=== PATIENT | male | born 1975 | race African-American/Black ===

== ENCOUNTER 2024-07-10 06:19 | Inpatient (IN) | payer OTHER, SELFPAY ==
[2024-07-10] VITALS (56 sets, daily range): BP systolic 126–221; BP diastolic 78–152; PULSE 77–78; O2SAT 95–99; BMI 34.0; BMI 33.7
--- NOTE | 2024-07-10 04:01 | ED.CVA ---
History of Present Illness
General
Chief Complaint: CVA/TIA Symptoms
Source: patient
Exam Limitations: none
Time Seen by Provider: 07/10/24 03:52
Nursing documentation reviewed up to this point in time: agreed with
Onset of Stroke Symptoms
Onset of symptoms known: Yes
Date of onset of symptoms: 07/09/24
Time of onset of symptoms: 20:00
History of Present Illness
History of Present Illness:
49-year-old male with a past medical history of hypertension who presents to the emergency department for evaluation of dysarthria and right-sided weakness. Patient reports onset of symptoms around 8 PM and they have been constant since that time
although he says he feels they have slightly improved. He says that he was hoping they would go away and that it was nothing serious but when symptoms were not resolving a coworker convinced him to come to the hospital. He denies any left-sided
numbness or weakness. He denies any change in his vision. He denies any headache. He denies any dizziness. He denies any other complaints. He has not had similar symptoms in the past. He was noted to be markedly hypertensive on arrival�he
reports that he had does have a history of hypertension and previously was on medication but has been noncompliant for quite some time.
Past History
Past History
ED Past Medical History: None
ED Past Surgical History: None
Social History
Tobacco: Non-smoker
Review of Systems
Review of Systems
All Other Systems: ROS reviewed and negative except as documented in HPI and ROS
Constitutional: Denies fever
Respiratory: Denies trouble breathing
Cardiac: Denies chest pain
ABD/GI: Denies abdominal pain
Musculoskeletal: Denies neck pain or back pain
Neurological: Reports weakness, numbness and other (Dysarthria); Denies dizzy or headache
Phy Exam
Physical Exam
Physical Exam:
General: Awake, alert, oriented x3; no acute distress
Head: Normocephalic, atraumatic
Eyes: Conjunctiva normal, EOMI, pupils equal round and reactive to light bilaterally
Throat: Airway intact, handling secretions
Neck: Trachea midline, supple without meningismus
Lungs: Clear to auscultation bilaterally, no wheezing, rales, rhonchi
Heart: Regular rate and rhythm, no murmurs, gallops, or rubs
Abd: Soft, non distended, nontender
Neuro: Very subtle facial droop on the left, proximal weakness 4+/5 right upper extremity but no pronator drift, 5/5 distal strength right upper extremity; 5/5 strength proximally and distally left upper extremity; 4/5 strength proximally right
lower extremity, 5/5 strength distal right lower extremity; 5/5 strength proximally and distally left lower extremity; sensory exam intact; no limb ataxia; very slight dysarthria but no aphasia
Skin: no rash
Extremities: No edema in extremities, equal pulses in all extremities
Scores
NIH Stroke Score
Level of Consciousness: 0 - Alert
LOC Questions: 0-Answers both correctly
LOC Commands: 0-Performs both correctly
Best Horizontal Gaze: 0-Normal
Visual [place]: 0=Normal, no visual loss
Facial Palsy: 1=Minor paralysis
Motor - Right Arm: 0=No drift 10 seconds
Motor - Left Arm: 0=No drift 10 seconds
Motor - Right Le-Drift < 5 seconds
Motor - Left Le-No drift 5 seconds
Limb Ataxia: 0-Absent
Sensation: 0-Normal
Best Language: 0-No aphasia
Dysarthria: 1-Mild slurring
Extinction and Inattention: 0-No abnormality
Total Score:: 3
Thrombolytic Contraindication
Inclusion and Exclusion criteria reviewed: Yes
Reasons for NON-Tx with Thrombolytics ABSOLUTE Exclusions: Greater than 4.5 hrs from onset of sxs
Heart Failure Risk
Heart Failure Risk Score: Not Applicable
Heart Score for Chest Pain Patients
STEMI patient?: Not applicable
Withdrawal Assessment of Alcohol
Withdrawal Assessment Completed?: Not applicable
Course
Orders/Labs/Results
Orders:
Orders
07/10/24 03:58
CT HEAD STROKE ALERT W/o Cont Urgent
Comment:
Reason For Exam: right weakness, dysarthria
CT HEAD/NECK ANG STROKE ALERT Urgent
Comment:
Reason For Exam: right weakness, dysarthria
Bedside Glucose- Treatment ONCE
Cardiac Monitoring- Treatment ONCE
IV Insert/Care/Rem.- Treatment PRN
Vital Signs- Treatment ONCE
Frequency: q30m
Labetalol HCl [Trandate] 10 mg IV NOW STA
Pulse Ox/cont/shift [RESP] Stat
Quantity: 1
07/10/24 03:59
Electrocardiogram (*1) Stat
Reason for Study: Other
Other Reason for Exam: neuro symptoms
EKG- Treatment ONCE
07/10/24 04:29
Complete Blood Count/With Diff Urgent
Comprehensive Metabolic Panel Urgent
07/10/24 04:33
Clonidine [Catapres] 0.2 mg PO NOW STA
07/10/24 04:36
Aspirin 325 mg PO NOW STA
Clopidogrel Bisulfate [Plavix] 300 mg PO NOW STA
07/10/24 04:39
NEUROLOGY CONSULT Urgent
Consulting Provider: Sandeep Bravo
Was physician already notified: Yes
Abnormal Lab Results
07/10/24 07/10/24
04:27 04:29
MCV 79.5 L fL
(80.0-94.0)
MCH 26.0 L pg
(27.0-31.0)
MCHC 32.8 L g/dL
(33.0-37.0)
MPV 11.8 H fL
(7.4-10.4)
Eosinophils % 10.3 H %
(0-6)
POC Glucose 110 H mg/dl
(70-99)
07/10/24 04:29
Vital Signs
Initial and Last Documented VS:
Initial Vital Signs
BP
221/150
07/10/24 03:50
Last Documented Vital Signs
Pulse Resp BP Pulse Ox
95 26 215/152 99
07/10/24 04:22 07/10/24 03:55 07/10/24 04:40 07/10/24 03:55
MDM/Problems Addressed
Differential Diagnosis Includes:
Hemorrhagic/ischemic stroke, malignant hypertension/hypertensive crisis, seizure, brain mass
MDM/Problems Addressed:
49-year-old male presents to the ER for evaluation of right sided weakness and numbness, dysarthria that started around 8 PM�he feels symptoms have slightly improved but have not resolved. Presents was markedly hypertensive with a blood pressure of
221/150. Pulse in the 90s. Mild tachypnea. Afebrile with normal pulse ox on room air. Physical exam as above�NIH stroke scale 3. Stroke alert was called after initial assessment. Case discussed with neurology�unfortunately patient would be
outside TNK window and even within the window would need aggressive blood pressure control. Will treat with IV labetalol. Sent for CT head and CTA head and neck. Send off usual labs, EKG. Monitor very closely reassess after the above.
Initial CT called back by vision radiology: Question hyperdense M2 on the right versus artifact but no clear acute infarct or hemorrhage�will follow-up on CTA. Continue to monitor. Antihypertensive treatment in progress.
CTA head and neck negative for any acute pathology�no LVO. Discussed with neurology will dose with aspirin and Plavix. Blood pressure has improved with labetalol, systolic blood pressure down to 180 but still significant diastolic hypertension.
Given some p.o. clonidine. Discussed blood pressure management with hospitalist and neurology�will plan to treat for suspected hypertensive crisis aim for initial 20% reduction in blood pressure and started on Cardene infusion. Discussed with
hospitalist for admission.
Chronic conditions affecting care:
Hypertension
Chronic conditions affecting care: HTN
Acute Exacerbation and/or Progression of Chronic Illness:
Acutely hypertensive treated as above
Acute Exacerbation and/or Progression of Chronic Illness: HTN
*Radiology
Radiology exam reviewed: radiology read reviewed
*Pulse Oximetry
Patient hypoxic: no
*EKG
Interpreted by ED Provider?: Yes
Heart Rate: 84
Rate: normal
Rhythm: sinus
[place]: left axis deviation
Interval: normal interval
QRS Pattern: left vent hypertrophy
Ischemia: T-wave inversion (Lateral T wave inversions)
*Critical Care Note
Total Time (30-74mins, 75-104mins- exclusive of procedures): 36
comment:
Critical care statement: A total of 36 minutes of critical care time was provided for this patient. This includes management of unstable vital signs, evaluation of the patient at bedside, frequent reassessment, discussion with
consultants/hospitalist, and review of pertinent medical records. This time was separate from time utilized to perform any aforementioned documented procedures
Data Reviewed
Source: patient
Patient Management
Discussion with other providers: Hospitalist (Discussed with hospitalist), Director Cost (Discussed with neurologist) and Radiologist (Discussed with radiologist)
Escalation/DeEscalation of care consider admission/obs:
Admission indicated
ED Attending Note
-
Portions of this chart may have been created with voice recognition software.� Occasional wrong word or��sound alike� substitutions may have occurred due to the inherent limitations of voice recognition software.
Discharge Plan
Departure
Patient Disposition: Admit
Date of Disposition: 07/10/24
Time of Disposition: 04:55
Admit to doctor: Wade
Presentation/result/management discussed w/ accepting MD/DO: Hospitalist
Patient with high blood pressure during this ER visit?: Yes
Discharge Problem:
Hypertensive emergency, Acute CVA (cerebrovascular accident)
Interventions
Interventions:
*Risk Screen - Suicide Last Done: 07/10/24 03:38
*General Assessment Last Done: 07/10/24 03:38
*Neglect/Abuse Screening Last Done: 07/10/24 03:38
ED- Fall Risk Assessment Last Done: 07/10/24 03:38
*ED COVID-19 Vaccine History Last Done: 07/10/24 03:38
ED- Cardiac Assessment Last Done: 07/10/24 03:38
ED- Neurological Assessment Last Done: 07/10/24 03:38
ED- Pulmonary Assessment Last Done: 07/10/24 03:38
ED Swallowing Screen Last Done: 07/10/24 03:57
Discharge Date and Time
Print Language: TAIWANESE
[2024-07-10] MEDS: TRANDATE 10 MG IV (04:22)
[2024-07-10 04:28] LABS: Glucose - Point of Care 110 mg/dl (70-99)
[2024-07-10] MEDS: ASPIRIN 325 MG PO (04:40)
[2024-07-10] MEDS: PLAVIX 300 MG PO (04:40)
[2024-07-10] MEDS: CATAPRES 0.2 MG PO (04:40)
[2024-07-10 04:45] LABS: % Eosinophils 10.3 % (0-6); % Immature Granulocytes 0.3 % (0-0.5); % Lymphocytes 29.5 % (20.5-51.1); % Monocytes 7.7 % (1.7-9.3); % Neutrophils 51.2 % (42.2-75.2); Absolute Basophils 0.1 10^3/uL (0-0.2); Absolute Eosinophils 0.6 10^3/uL (0-0.7); Absolute Lymphocytes 1.8 10^3/uL (1.2-3.4); Absolute Monocytes 0.5 10^3/uL (0.1-0.6); Absolute Neutrophils 3.1 10^3/uL (1.4-6.5); Hematocrit 40.3 % (39.0-52.0); Hemoglobin 13.2 g/dL (13.0-18.0); Mean Corp Hgb Conc. 32.8 g/dL (33.0-37.0); Mean Corpuscular Volume 79.5 fL (80.0-94.0); Mean Platelet Volume 11.8 fL (7.4-10.4); Nucleated Red Blood Cells % 0 % (-); Platelet Count 209 10^3/uL (130-400); Red Blood Cell Count 5.07 10^6/uL (4.70-6.10); Red Cell Dist. Width 13.8 % (11.5-14.5)
[2024-07-10] MEDS: CARDENE 200 IV (05:09)
[2024-07-10 05:10] LABS: ALT (SGPT) 30 U/L (0-50); AST (SGOT) 42 U/L (17-59); Albumin 4.7 g/dl (3.5-5.0); Alkaline Phosphatase 54 U/L (38-126); Blood Urea Nitrogen 15 mg/dl (9-20); Calcium 9.3 mg/dl (8.4-10.2); Carbon Dioxide 31 mmol/L (22-30); Chloride 100 mmol/L (98-107); Estimated Creatinine Clearance 81 ml/min; Glucose 103 mg/dl (70-99); Potassium 3.5 mmol/L (3.5-5.1); Sodium 142 mmol/L (135-145); Total Bilirubin 0.5 mg/dl (0.2-1.3); eGFR > 60.00
--- NOTE | 2024-07-10 06:10 | HPS.HSE ---
Family Physician
-
Family Physician: NOT KNOW UNKNOWN - PT DOES
Chief Complaint
-
R sided weakness
History of Present Illness
Patient is a 49y left-hand dominant M with PMH significant for hypertension not currently on medication who presents to ED complaining of right-sided weakness. Patient states that he was at work when he appreciated a sense of heaviness /
weakness in his entire right side. This was around 8PM. His symptoms persisted for quite some time with perhaps only minimal improvement and her presented to the ED for further evaluation. He denies any prior history of similar symptoms. He
denies any recent illness, fevers / chills, chest pain, dyspnea, etc.
At the time of my examination, patient states that his symptoms feel fully resolved. He denies any headache, vision changes, N/V, etc.
Patient reports prior diagnosis of hypertension. He was previously on BP medication (one pill daily - he cannot recall the name) but states that he has not taken this in at least 2 years.
Medical History
Past Medical History
Past Medical History: Reports Other
Additional Past Medical History:
Hypertension
Past Surgical History: Reports None
Social History
Tobacco: Non-smoker
Alcohol: None
Drug: None
Family History
Family History: Not pertinent
Allergies / Home Medications
Allergies reflects when Allergies were last updated in [facility].
Home Medications with original date entered in [facility]
Allergy/Medication List:
Allergies
Allergy/AdvReac Type Severity Reaction Status Date / Time
No Known Allergies Allergy Verified 07/10/24 03:33
Home Medications
No Meds [No Current Medications] 07/10/24
Review of Systems
-
History Source: Patient
A 12 point ROS was completed and negative except as noted: Yes
Constitutional: Reports Fatigue; Denies Fever or Chills
EENT: Denies Sore Throat
Respiratory: Denies Cough or Trouble Breathing
Cardiac: Denies Chest Pain or Palpitations
Abdomen/GI: Denies Abdominal Pain, Nausea, Vomiting or Diarrhea
: Denies Dysuria or Frequency
Musculoskeletal: Denies Joint Pain or Edema
Neurological: Reports Weakness; Denies Dizzy, Headache or Numbness
Psych: Denies Depression or Anxiety
Physical Exam
Vital Signs
Vital Signs
Pulse Resp BP Pulse Ox
96 20 151/87 98
07/10/24 06:00 07/10/24 06:00 07/10/24 06:00 07/10/24 05:50
Physical Exam
General: Other (49y M in no acute distress. Seems somewhat fatigued / lethargic - but answers questions and follows commands appropriately.)
HEENT: Moist mucous membranes and PERRLA
Respiratory: Clear; No Wheezes, Rales or Rhonchi
Cardiac: S1/S2 and Regular Rhythm; No Murmur
GI: Soft, Non Tender, Non Distended and Normal Bowel Sounds
Musculoskeletal: No Clubbing, No Cyanosis and No Edema
Neuro: AO x 3 and Other (Smile symmetric. Tongue extends to midline. Weakness in RUE and RLE. No apparent ataxia. Sensation intact and symmetric.)
Laboratory Results
-
07/10/24 04:29
07/10/24 04:29
Laboratory Results
Total Bilirubin 0.5 mg/dl (0.2-1.3) 07/10/24 04:29
AST 42 U/L (17-59) 07/10/24 04:29
ALT 30 U/L (0-50) 07/10/24 04:29
Alkaline Phosphatase 54 U/L (38-126) 07/10/24 04:29
Impression/Plan
-
A/P: Patient is a 49y left-hand dominant male with PMH significant for hypertension who presents to ED complaining of R sided weakness this evening.
Hypertensive Emergency
Right Sided Weakness
Rule Out CVA
- Admit to ICU for further evaluation and treatment.
- Patient presented with R sided weakness and some somnolence fatigue.
- Initial BP = 221/150.
- Patient states that symptoms improved - though still appreciable R sided weakness evident on exam.
- IV Cardene for BP control and titrate as needed.
- ASA and Plavix.
- Neurology evaluation for additional recommendations.
- CT and CTA unremarkable in the ED. Check MRI this AM.
- Follow for any new / worsening neurologic symptoms.
- Check lipid panel, A1C, iron studies, etc.
- Begin PO antihypertensive med regimen prior to discharge.
DVT Prophylaxis: SCDs
Code Status: Full
--- NOTE | 2024-07-10 06:44 | EDRN ---
Addendum entered by Mona Nuñez RN 07/10/24 07:56:
to add to previous note, upon entering the room and assessing the pt, the pt mentioned how his left forearm felt 'swollen', this RN assesses the pts left forearm and the pts forearm has +2 non pitting edema present, this RN noticed a piece of gauze
with tape on the LAC site, this RN asked the pt when he noticed the swelling and the pt stated, 'Not too long ago', this RN will notify the provider
Original Note:
the pt was received from previous leather carver RN, the pt is resting in stretcher in the lowest position, side rails up x2, call looney within reach, HOB elevated, no s/s of distress, VS WNL, the pt is currently still on Cardene gtt at 5mg/hour, NIH
performed by this RN and no change from previous NIH performed by previous RN, NIH is a 3, the pt denies complaints at this time, awaiting for a bed assignment in ICU, will continue to monitor the pt closely
--- NOTE | 2024-07-10 08:04 | EDRN ---
this RN called the receiving ICU nurse Cody CAPPS and gave verbal report
--- NOTE | 2024-07-10 08:33 | EDRN ---
there was no answer regarding the pts swollen left forearm, this RN will notify the provider again
--- NOTE | 2024-07-10 08:33 | W.PN.HOSP.TC ---
Today's Communication/Plan
-
High intensity statin, Aspirin and Plavix
Wean off Cardene Drip as able
Continue to monitor in ICU
Appreciate veterinary attendant, neurology and cardiology
Assessment / Plan
Assessment / Plan
Physical Exam
General: Not in acute distress
HEENT: Moist mucous membranes
Respiratory: Clear to Auscultation Bilaterally
Cardiac: S1/S2 and Regular Rhythm
GI: Soft, Non Tender, Non Distended and Normal Bowel Sounds
Musculoskeletal: No Cyanosis and No Edema
Neuro: AAO x 3. Cranial Nerves 2 through 12 grossly intact bilaterally. Strength 5/5 bilaterally. Sensation grossly intact throughout.
Assessment/Plan
Patient is a 49y left-hand dominant male with PMH significant for hypertension who presented to complaining of right-sided weakness on the evening of 07/10/24.
Hypertensive Emergency
Right Sided Weakness -- RESOLVED
Rule Out CVA
Multiple Strokes (both old and new) on Brain MRI, as per neurologist
- Continue to monitor in ICU
- Initial BP = 221/150.
- Patient states that symptoms improved
- IV Cardene for BP control and titrate as needed.
- Continue Aspirin and Plavix.
- Neurology evaluation for additional recommendations.
- CT and CTA unremarkable in the ED.
- MRI Brain with multiple strokes
- Follow for any new / worsening neurologic symptoms.
- LDL 160, A1C 5.4, iron studies pending
- High-intensity statin
- Amlodipine 5 mg PO BID started
- Consulted cardiology for SALVADOR evaluation
Snoring
- outpatient pulm/HST recommended
DVT Prophylaxis: SCDs. Lovenox.
Code Status: Full
Hypertensive emergency and strokes is a high risk encounter.
Anticipated Discharge: > 48 hours
Subjective/Interval History
-
Date of Service: July 10, 2024
Patient was seen and examined. He reported that his right sided weakness has resolved, and he denied any numbness, tingling, chest pain, SOB or any other symptoms or complaints.
Objective Data
-
Labs:
Laboratory Results
07/10/24
04:29
WBC 6.0
Hgb 13.2
Hct 40.3
Plt Count 209
Sodium 142
Potassium 3.5
Chloride 100
Carbon Dioxide 31 H
BUN 15
Creatinine 1.3
Glucose 103 H
Calcium 9.3
Total Bilirubin 0.5
AST 42
ALT 30
Alkaline Phosphatase 54
Vital Signs:
Vital Signs
Temp Pulse Resp BP Pulse Ox
98.5 F 96 13 149/94 97
07/10/24 06:42 07/10/24 07:52 07/10/24 07:52 07/10/24 07:52 07/10/24 07:52
--- NOTE | 2024-07-10 08:51 | EDRN ---
Dr Glover is aware of the pts LFA swelling
--- NOTE | 2024-07-10 09:05 | CON.INTV ---
Consultation
Consultation Request
Date/Time Consultation Requested: 07/10/24
Date/Time Consultation Performed: 07/10/24
Performing Provider: Janny
Reason for Consultation: HTN emergency
Medical History
-
History of Present Illness:
Patient is a 49-year-old male with previous history of hypertension not currently on medication presenting to ER with complaints of right-sided weakness. Onset of symptoms began the night prior to admission around 8 PM. Denies any associated
vision changes, nausea or vomiting. He does have slight headache. In ER he was noted to be 221/150 and placed on Cardene drip. His blood pressure has been this high in the past per patient. He was supposed to be on blood pressure medication but
has not been taking it for the past [address] negative. He is admitted to ICU for hypertensive emergency.
Past Medical History
Past Medical History: HTN
Social History
Tobacco: Non-smoker
Alcohol: None
Drug: None
Family History
Family History: Reviewed & Not Pertinent
Allergies / Home Medications
Allergies
Allergy/AdvReac Type Severity Reaction Status Date / Time
No Known Allergies Allergy Verified 07/10/24 03:33
Home Medications
�Medication �Instructions �Recorded �Confirmed �Last Taken �Type
No Meds [No Current Medications] 07/10/24 07/10/24 Unknown History
Review of Systems
-
History Source: Patient
All other systems: Negative unless noted
Vitals / Labs / Diagnostic Testing
Vital Signs
Temp Pulse Resp BP Pulse Ox
98.5 F 79 16 147/94 96
07/10/24 06:42 07/10/24 08:45 07/10/24 08:45 07/10/24 08:30 07/10/24 08:45
Lab Data
07/10/24 04:29
07/10/24 04:29
Diagnostic Testing:
Physical Exam
-
HEENT: Normocephalic, Anicteric and Moist Mucous Membranes
Cardiovascular: S1/S2 and Regular Rhythm
Respiratory: Clear and Non-Labored Respirations
GI: Soft, Non Distended and Non Tender
Neurology: Awake, Alert, Oriented and No Motor Deficits
Skin: Warm, Dry and Good Color
General: Comfortable and Other (NAD)
Assessment
-
Patient is a 49-year-old male with previous history of hypertension not currently on medication presenting to ER with complaints of right-sided weakness. Onset of symptoms began the night prior to admission around 8 PM. Denies any associated
vision changes, nausea or vomiting. He does have slight headache. In ER he was noted to be 221/150 and placed on Cardene drip. His blood pressure has been this high in the past per patient. He was supposed to be on blood pressure medication but
has not been taking it for the past [address] negative. He is admitted to ICU for hypertensive emergency.
Hypertensive emergency on Cardene
R sided weakness
Headache
Conditions present WATCH GUARD GATE
HTN, noncompliant
Obesity, BMI 34
+snoring, likely with OSAS
Plan
No current signs of metabolic encephalopathy or MS changes/following commands
R sided weakness, SHORT--Head CT negative
Neuro consult obtained, now ruled in for CVA but placed on ASA/Plavix
Pain/sedation: PRN
RASS goals: 0
Hemodynamically stable, not requiring pressors.
Cardiac history reviewed -- poorly controlled HTN, noncomplaint
Now on cardene, improved, transition to PO BP Meds
No prior ECHO in past, new study pending
Monitor on telemetry
Oxygen needs: stable on RA
Prior history of lung disease: none, lifelong nonsmoker
Supplemental O2 as indicated to maintain sats > 89%
CXR/CT in past reviewed indicating NAD
+Snoring, outpt HST recommended--will place FU in chart
Speech therapy eval
NPO, advance diet pending speech eval
Manager Rental recommendations
Aspiration precautions, HOB > 30 degrees
GI prophylaxis if indicated
Creat at baseline, no history of renal disease
Void trials
Follow urine output, critical I/Os
Replete electrolytes as needed
No signs/symptoms suspicious for infectious etiology at this time
Observe off antibiotics for now
Follow fever trend, WBC count
CBC stable, no signs of bleeding or coagulopathy.
DVT prophylaxis as assessed based on risk, including mechanical SCDs
Can transfuse if indicated for Hb <7, plt < 10
No prior h/o diabetes or thyroid disease
Monitor accuchecks PRN/SS coverage if needed
HbA1c pending
If doing well-off cardene can transfer to floors. We will sign off upon transfer.
Diagnostic Data
Chest X-Ray: 05/07/23- No evidence of active cardiopulmonary disease. There is no radiographic evidence to suggest active tuberculosis
CT Scan: HEAD-pending final read
Head 11/22/20- No acute intracranial abnormality noted. Minimal periventricular small vessel ischemic disease.
Echo:
PFT's:
Reports and relevant images were personally reviewed.
-----
Critical care time 55 mins -- this includes review of history, physical exam, medications, hemodynamic/ventilator parameters, laboratory data, imaging and discussion with house staff, pharmacy, respiratory therapy, turret lathe tender, and nursing.
--- NOTE | 2024-07-10 09:13 | CON.NEURO ---
Neuro Assessment/Plan
Assessment
Acute onset right arm and leg numbness associated by report with dysarthria. Patient had malignant hypertension at the time of presentation.
Differential diagnosis at this time would include hypertensive encephalopathy, or stroke
Plan
Check MRI of brain to evaluate for possible structural abnormality producing the hypertensive crisis
Check lipid profile
Agree with initiation of aspirin and clopidogrel both of which may be discontinued if there are not findings by MRI that suggest prior ischemic injury
Goal of blood pressure improvement with the goal of normotension if there is an absence of acute ischemic stroke
Provide medical educational materials
DVT prophylaxis
Will follow pending results
Consultation
Order
Date of Consultation: 07/10/24
Requesting Provider: Hospitalists
Reason for Consult: Right hemibody sensation change
Subjective/Objective
Subjective Data
Date of Service: July 10, 2024
Left handed
Patient presented to this hospital's emergency department as a stroke alert due to sudden onset of dysarthria and right-sided weakness.
Patient reported numbness in arm and leg equally. He reports improvement since presentation, normalized after 1 hour after ED presentation. No prior episodes. Patient is not aware of factors improving or worsening of the symptoms. No involvement
of other locations.
Objective Data
Vital Signs
Temp Pulse Resp BP Pulse Ox
36.9 C 79 16 147/94 96
07/10/24 06:42 07/10/24 08:45 07/10/24 08:45 07/10/24 08:30 07/10/24 08:45
Lab Results
07/10/24 04:29
07/10/24 04:29
Sodium 142 mmol/L (135-145) 07/10/24 04:29
Potassium 3.5 mmol/L (3.5-5.1) 07/10/24 04:29
BUN 15 mg/dl (9-20) 07/10/24 04:29
Glucose 103 mg/dl (70-99) H 07/10/24 04:29
Calcium 9.3 mg/dl (8.4-10.2) 07/10/24 04:29
Patient Allergies
No Known Allergies Allergy (Verified 07/10/24 03:33)
CVA Assessment
Onset of Stroke Symptoms
Onset of symptoms known: Yes
Date of onset of symptoms: 07/09/24
Time of onset of symptoms: 20:00
Time pt last seen normal is known: Yes
Date last time pt seen normal: 07/09/24
Time last time pt seen normal: 20:00
NIH Stroke Score
Level of Consciousness: 0 - Alert
LOC Questions: 0-Answers both correctly
LOC Commands: 0-Performs both correctly
Best Horizontal Gaze: 0-Normal
Visual Merino: 0=Normal, no visual loss
Facial Palsy: 0=Normal, symmetrical
Motor - Right Arm: 0=No drift 10 seconds
Motor - Left Arm: 0=No drift 10 seconds
Motor - Right Le-No drift 5 seconds
Motor - Left Le-No drift 5 seconds
Limb Ataxia: 0-Absent
Sensation: 0-Normal
Best Language: 0-No aphasia
Dysarthria: 0-Normal
Extinction and Inattention: 0-No abnormality
Total Score:: 0
Tenecteplase Contraindications
Inclusion and Exclusion criteria reviewed: Yes
IAT Contraindications: NIHSS < 6
Review of Systems
-
History Source: Patient
All other systems: Reviewed and negative
EENT: Negative Decreased Vision or Swallowing Difficulty
Respiratory: Negative Trouble Breathing
Cardiac: Negative Chest Pain
Abdomen/GI: Negative Incontinence of Stool
Genitourinary: Negative Incontinence
Musculoskeletal: Other (swelling in left arm); Negative Back Pain or Neck Pain
Neuro: Headache; Negative Dizzy
Physical Exam
-
General: No Apparent Distress and Appears Stated Age
Eyes: OU Absent Papilledema, Round OU, [place] Conjunctivae and No Ptosis
HEENT: Anicteric and Moist Mucous Membranes
Neck: Full Range of Motion
Respiratory: No Dyspnea
Cardiac: No JVD
GI: Non-distended
Skin: Unremarkable
Extremities: No Clubbing, No Cyanosis and No Edema
Psych: Intact Judgement/Insight
Extended Neurological Exam
Mood & Affect: Mood Unremarkable and Affect Unremarkable
Attention Span & Concentration: Awake, Alert, Interactive and No Difficulty with 2 Step Request
Memory: Unremarkable
Tremor: Hand Tremor Absent and Head Tremor Absent
Speech: Quality Unremarkable and Quantity Unremarkable
Cranial Nerve II: Left Eye: Pupillary Reactivity Unremarkable, Pupillary Size Unremarkable and Visual Merino Intact
Cranial Nerve II: Right Eye: Pupillary Reactivity Unremarkable, Pupillary Size Unremarkable and Visual Merino Intact
Cranial Nerves III, IV, : Extraocular Movement: Extraocular Movement Full in all Directions
Cranial Nerve VII: Facial Symmetry: Normal Facial Symmetry
Cranial Nerve VIII: Hearing: Unremarkable Hearing to Normal Conversational Volume
Cranial Nerves IX, X: Palate Movement: Palate Elevation Symmetric
Cranial Nerve XI: Shoulder Shrug: Unremarkable
Cranial Nerve XII: Tongue Protusion: Midline
Muscle Strength, Overall: Full Throughout
Muscle Bulk & Tone: Bulk Unremarkable and Tone Unremarkable
Pronator Drift: No Drift in Upper Extremities
Deep Tendon Reflexes: Unremarkable Throughout
Touch Sensation: Unremarkable
Coordination: [id number]-[id number] Testing Unremarkable
Babinski Sign: Absent Bilaterally
Data Reviewed
-
CT Head: Report Reviewed and Image Reviewed
Labs: Report Reviewed
Lipid Profile: Ordered
Reviewed with: Nurse and Patient
Old Records: Summarized
Medications
-
Active Medications
Generic Name Dose Route Start Last Admin
Trade Name Freq PRN Reason Stop Dose Admin
Acetaminophen 650 mg 07/10/24 09:09
Acetaminophen 325 Mg Tablet PO 08/07/24 09:08
Q4HPRN PRN
Mild Pain / Temp > 101
Amlodipine Besylate 5 mg 07/10/24 09:09
Amlodipine 5 Mg Tablet PO 08/07/24 09:08
BID THIAGO
Aspirin 81 mg 07/10/24 09:09
Aspirin 81 Mg Chewable Tablet PO 08/07/24 09:08
DAILY THIAGO
Clopidogrel Bisulfate 75 mg 07/10/24 09:09
Clopidogrel 75 Mg Tablet PO 08/07/24 09:08
DAILY THIAGO
Nicardipine/Sodium Chloride 40 mg in 200 mls @ 0 mls/hr 07/10/24 09:09
Cardene IV
PER PROTOCOL THIAGO
Protocol
Per Protocol
Home Medications
�Medication �Instructions �Recorded
No Meds [No Current Medications] 07/10/24
Past History
Past History
ED Past Medical History: HTN
ED Past Surgical History: None
Social History
Tobacco: Non-smoker
Alcohol: None
Drug: None
Employment: Employed
Family History
Family History: Other (Reviewed and noncontributory)
[2024-07-10] MEDS: LOW STRENGTH ASPIRIN PO (09:20)
[2024-07-10] MEDS: PLAVIX PO (09:20)
[2024-07-10 09:36] LABS: Erythrocyte Sed Rate 10 mm/hour (0-20)
[2024-07-10] MEDS: NORVASC 5 MG PO ×2 (10:32→20:13)
[2024-07-10] MEDS: COMPAZINE 10 MG PO (10:32)
[2024-07-10 12:08] LABS: HDL Cholesterol 44 mg/dl; LDL Cholesterol, Calculated 160 mg/dl; Total Cholesterol 221 mg/dl (50-199); Triglyceride 87 mg/dl (10-149); Very Low Density Lipoprotein 17 mg/dl (0-30)
[2024-07-10 12:35] LABS: Glycohemoglobin (HgbA1c) 5.4 % (4.0-5.6)
--- NOTE | 2024-07-10 12:55 | PTOTSP ---
Speech Language Pathology
Pt seen for clinical bedside swallow evaluation. P.O. trials of regular solids and thin liquids provided. Adequate mastication, bolus formation, and A-P transit noted with no oral residue. No overt signs of aspiration.
Recommend:
(1) Regular solids/thin liquids
(2) General aspiration precautions
(3) Meds as tolerated
(4) Further dysphagia tx not indicated. Cognitive-linguistic evaluation to be completed if MRI positive for acute infarct. Otherwise, LIVE IN HOUSEKEEPER to sign off
--- NOTE | 2024-07-10 13:08 | CM ---
CM follwoing re: discharge planning.
Reviewed pt's chart, met with pt.
Pt is a 49 year old male, admitted with primary dx of HTN emergency.
Pt reports he was born and grew up in [place], immigrated to [facility] with family and resided in a [facility] with spouse and 2 children. 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
PCP: pt stated he does not have PCP. A list of PCP in [facility] area provided.
Pharmacy: [facility].
D/C plan: home with anticipated no needs.
CM will follow with discharge plan updates as hospitalization progresses
--- NOTE | 2024-07-10 14:51 | PTOTSP ---
pt currently demonstrates ability to complete simple ADLs, functional transfers, ambulation with supervision to no assistance. no overt deficits noted regarding pt's functional abilities or cognition. no acute OT needs identified at this time, will
sign off.
--- NOTE | 2024-07-10 16:00 | PTCARENOTE ---
Pt continues to have resolved stroke symptoms. NIH - 0. BP stable off of Cardene infusion. Pt is alert and communicative but seems withdrawn and drowsy.
[2024-07-10 16:42] LABS: TSH Reflex To Free T4 3.21 uIU/ml (0.47-4.68)
[2024-07-10 16:47] LABS: Ferritin 35.9 ng/ml (17.9-464.0)
[2024-07-10 17:18] LABS: Folate 8.8 ng/ml (2.76-20); Vitamin B12 549 pg/ml (239-931)
[2024-07-10] MEDS: LOVENOX 40 MG SC (18:35)
[2024-07-10] MEDS: LIPITOR 80 MG PO (18:35)
--- NOTE | 2024-07-10 20:00 | PTCARENOTE ---
Resumed care of pt this evening. NIHSS-0. No neurological deficits noted in assessment. Pt able to move all 4 extremities, is A&Ox 3, and can make needs known.
[2024-07-11] VITALS (54 sets, daily range): BP systolic 126–203; BP diastolic 92–134
--- NOTE | 2024-07-11 | PTCARENOTE ---
Upon reassessment pt is resting comfortably. Neuro assessment unchanged.
[2024-07-11 06:55] LABS: Hematocrit 42.6 % (39.0-52.0); Mean Corp Hgb Conc. 32.9 g/dL (33.0-37.0); Mean Corpuscular Hgb 26.1 pg (27.0-31.0); Mean Corpuscular Volume 79.5 fL (80.0-94.0); Mean Platelet Volume 11.1 fL (7.4-10.4); Platelet Count 233 10^3/uL (130-400); Red Blood Cell Count 5.36 10^6/uL (4.70-6.10); Red Cell Dist. Width 13.9 % (11.5-14.5); White Blood Cell Count 6.1 10^3/uL (4.8-10.8)
--- NOTE | 2024-07-11 07:00 | PTCARENOTE ---
Pt's pressure is elevated this morning, SBP in the 170s. Dayshift RN made aware.
[2024-07-11 07:13] LABS: Blood Urea Nitrogen 15 mg/dl (9-20); Calcium 9.4 mg/dl (8.4-10.2); Carbon Dioxide 30 mmol/L (22-30); Chloride 102 mmol/L (98-107); Estimated Creatinine Clearance 75 ml/min; Glucose 96 mg/dl (70-99); HDL Cholesterol 38 mg/dl; Iron 141 ug/dl (49-181); LDL Cholesterol, Calculated 168 mg/dl; Potassium 3.3 mmol/L (3.5-5.1); Sodium 142 mmol/L (135-145); Total Cholesterol 223 mg/dl (50-199); Triglyceride 88 mg/dl (10-149); Very Low Density Lipoprotein 17 mg/dl (0-30); eGFR > 60.00
[2024-07-11] MEDS: NORVASC 5 MG PO ×2 (07:21→19:47)
[2024-07-11] MEDS: LOW STRENGTH ASPIRIN 81 MG PO (07:21)
[2024-07-11] MEDS: PLAVIX 75 MG PO (07:21)
[2024-07-11 07:22] LABS: Percent Saturation 44 % (20-50); Total Iron Binding Capacity 316 ug/dl (261-462)
--- NOTE | 2024-07-11 07:25 | W.PN.INTV ---
Today's Communication / Plan
Recommendations
MRI reviewed with patient, neuro following
HTN management ongoing, will add IV PRN to wean off cardene gtt
Cards eval pending for ongoing HTN management as well
PT/OT, speech evals
Transfer to floors if can remain off cardene
Assessment
-
Patient is a 49-year-old male with previous history of hypertension not currently on medication presenting to ER with complaints of right-sided weakness. Onset of symptoms began the night prior to admission around 8 PM. Denies any associated
vision changes, nausea or vomiting. He does have slight headache. In ER he was noted to be 221/150 and placed on Cardene drip. His blood pressure has been this high in the past per patient. He was supposed to be on blood pressure medication but
has not been taking it for the past [address] negative. He is admitted to ICU for hypertensive emergency.
Hypertensive emergency on Cardene
R sided weakness
Headache
MRI + multiple acute/chronic CVAs
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
HTN, noncompliant
Obesity, BMI 34
+snoring, likely with OSAS
Plan
No current signs of metabolic encephalopathy or MS changes/following commands
R sided weakness, SHORT--initial HCT negative
Neuro consult obtained
MRI showing multiple acute/chronic CVAs, on ASA/Plavix
Pain/sedation: PRN
RASS goals: 0
Hemodynamically stable, not requiring pressors.
Cardiac history reviewed -- poorly controlled HTN, noncompliant
Now on cardene, improved, transition to PO BP Meds--add PRN IV hydralazine
Cards eval pending
No prior ECHO in past, new study pending
Monitor on telemetry
Oxygen needs: stable on RA
Prior history of lung disease: none, lifelong nonsmoker
Supplemental O2 as indicated to maintain sats > 89%
CXR/CT in past reviewed indicating NAD
+Snoring, outpt HST recommended--will place FU in chart
Speech therapy eval
Diet advancement
Manager Intensive Care Unit recommendations
Aspiration precautions, HOB > 30 degrees
GI prophylaxis if indicated
Creat at baseline, no history of renal disease
Void trials
Follow urine output, critical I/Os
Replete electrolytes as needed
No signs/symptoms suspicious for infectious etiology at this time
Observe off antibiotics for now
Follow fever trend, WBC count
CBC stable, no signs of bleeding or coagulopathy.
DVT prophylaxis as assessed based on risk, including mechanical SCDs
Can transfuse if indicated for Hb <7, plt < 10
No prior h/o diabetes or thyroid disease
Monitor accuchecks PRN/SS coverage if needed
HbA1c 5.4
If doing well-off cardene can transfer to floors. We will sign off upon transfer.
Diagnostic Data
Chest X-Ray: 05/07/23- No evidence of active cardiopulmonary disease. There is no radiographic evidence to suggest active tuberculosis
CT Scan: HEAD-pending final read
Head 11/22/20- No acute intracranial abnormality noted. Minimal periventricular small vessel ischemic disease.
Brain MRI 07/10/24- 1).There are multiple areas of restricted diffusion in multiple vascular distributions involving both cerebral hemispheres suggesting acute/subacute embolic infarct. Areas of acute/subacute nonhemorrhagic infarct include:
-4 mm lesion in right putamen
-4 mm lesion in the right thalamus
-11 mm lesion subcortical white matter left frontal lobe
-3 mm lesion anterior left putamen
-6 mm lesion posteriorly in the internal capsule on the left
-16 mm lesion anterior left occipital lobe abutting the splenium of the corpus callosum
Echo:
PFT's:
Reports and relevant images were personally reviewed.
-----
Critical care time 35 mins -- this includes review of history, physical exam, medications, hemodynamic/ventilator parameters, laboratory data, imaging and discussion with house staff, pharmacy, respiratory therapy, bull float finisher, and nursing.
Subjective Dataa
Subjective Data
Date of Service:
Date of Service: July 11, 2024
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
Subjective:
MRI results noted, reviewed with patient
He denies any new complaints
Remains stable on RA
On/off Cardene
Objective Data
Data Reviewed
Vital Signs / I&O / Oxygen:
Vital Signs
Temp Pulse Resp BP Pulse Ox
99.3 F 81 9 158/108 96
07/11/24 07:00 07/11/24 03:30 07/11/24 03:30 07/11/24 03:30 07/11/24 03:30
SaO2 96
Physical Exam
General: Comfortable and Other (NAD)
HEENT: Normocephalic, Anicteric and Moist Mucous Membranes
Cardiovascular: S1-S2 and Regular Rhythm
Respiratory: Clear and Non-Labored Respirations
GI: Soft, Non Distended and Non Tender
Neurology: Awake, Alert, Oriented and No Motor Deficits
Skin: Warm, Dry and Good Color
Labs/Micro/Reports
Lab Data
07/11/24 05:15
07/11/24 05:15
[2024-07-11] MEDS: KCL 40 MEQ PO (08:30)
[2024-07-11] MEDS: Hygroton 12.5 MG PO (08:43)
[2024-07-11 09:17] LABS: Magnesium 2.2 mg/dl (1.6-2.3)
--- NOTE | 2024-07-11 09:21 | PTOTSP ---
Cognitive Communication Evaluation
49M s/p acute/subacute embolic infarct p/w WNL cognitive linguistic functioning. No overt concerns for impairments related to executive functions, naming, memory, attention, language, abstraction, recall, and orientation this date. Patient denies
any decline in cognitive functioning. Education provided on s/s of to look out for (e.g. reduced mental endurance, fatigue, impairments in attention) and advised outpatient ADULT BASIC STUDIES TEACHER evaluation if s/s arise. Patient verbalized agreement and understanding.
ADULT BASIC STUDIES TEACHER service to sign off.
--- NOTE | 2024-07-11 10:00 | PTCARENOTE ---
Rec'd pt at 0700. Pt AAOx3, OOB in chair. SHARMA with equal strength. NIHSS-0. SBP 170-180's, am Norvasc given at approx 0730. aware. ~0830 SBP up to 203, Cardene gtts restarted at 2.5mg/hr. notified, 12.5mg Chlorthalidone ordered and given.
Monitor SR/ST. Lungs CTA. Pt ambulatory in room.
--- NOTE | 2024-07-11 10:18 | CON.CAR ---
Consultation
Consultation Request
Date/Time Consultation Requested: 07/11/24
Date/Time Consultation Performed: 07/11/24
Requesting Provider: Dr. Glover
Performing Provider: Dr. Bejarano
Reason for Consultation: Stroke, hypertensive emergency
Medical History
-
Chief Complaint: Right-sided weakness
History of Present Illness:
I had the pleasure to meet Kim Rebollar in ICU room 3360 after he was admitted to [facility] 07/10/2024 with acute right sided weakness diagnosed with multiple acute/chronic strokes. Patient is a 49-year-old [place] gentleman who
reports prior history of hypertension not currently on antihypertensive therapy and has not seen a physician in many years. He works at [employer] and had previously been checking his blood pressures however had stopped doing this several
months ago. The night prior to his admission he had noted right sided weakness. He denied preceding headaches or change in vision. No speech difficulties. No syncope near syncope. He denies chest pain or pressure. He denies prior history of
stroke or thromboembolic disease. He has had no recent COVID or infections. He denies recent travel. He is a lifelong non-smoker and does not drink or do illicit drugs. He has had no prior cardiac evaluation. Family history was reviewed: His
mother and father are still living and reportedly healthy as are his multiple siblings including 4 brothers and 5 sisters. He denies family history of hypertension, hyperlipidemia, diabetes, thromboembolic disease, prior stroke or premature
coronary artery disease No history of valvular heart disease.
.
In the emergency department his blood pressure was found to be 221 over 150 mg/dL and placed on IV Cardizem drip. His initial head CT was negative with subsequent brain MRI demonstrating acute and chronic bilateral nonhemorrhagic strokes.
Fortunately his right-sided weakness has resolved. Overnight he was placed back on IV Cardene drip with blood pressure goals now normotensive. Neurology and intensive care has also been consulted.
Past medical history: Hypertension
Past Medical History
Past Medical History: Other (See HPI)
Social History
Tobacco: Non-Smoker
Alcohol: None
Drug: None
Personal:
Living: With Family
Employment: Employed
Family History
Family History: Other (See HPI)
Allergies / Home Medications
Allergy/AdvReac Type Severity Reaction Status Date / Time
No Known Allergies Allergy Verified 07/10/24 03:33
�Medication �Instructions �Recorded �Confirmed �Type
No Meds [No Current Medications] 07/10/24 07/10/24 History
Review of Systems
-
History Source: Patient
All other systems: Negative unless noted
Constitutional: No Symptoms
EENT: No Symptoms
Respiratory: No Symptoms
Cardiac: No Symptoms
Abdomen/GI: No Symptoms
: No Symptoms
Musculoskeletal: No Symptoms
Neurological: Weakness (Right sided weakness which has resolved)
Hematologic/Lymphatic: No Symptoms
Physical Exam
Vital Signs
Temp Pulse Resp BP Pulse Ox
99.3 F 104 23 178/120 98
07/11/24 07:00 07/11/24 10:00 07/11/24 10:00 07/11/24 10:00 07/11/24 10:00
Lab Results
07/11/24 05:15
07/11/24 05:15
Physical Exam
General: Well Developed, Well Nourished, No Apparent Distress and Comfortable (Sitting out of bed to chair on room air)
HEENT: Normocephalic, Anicteric and Moist Mucous Membranes
Respiratory: Clear
Cardiac: S1/S2, Regular Rhythm and Other (No carotid bruit); Negative Murmur, Rub, Peripheral Edema, Calf Tenderness or JVD
Breast: Deferred by me
GI: Soft, Non Tender, Non Distended and Normal Bowel Sounds
Musculoskeletal: No Edema
Skin: Warm; Negative Rash
Neuro: AO x 3
Psych: Calm and Other (Affect is quite flat answering questions with limited description)
Impression / Plan
-
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 Bejarano
Impression:
Right-sided upper extremity weakness which has resolved
Multiple acute/chronic bilateral CVAs on MRI
Hypertensive emergency
Renal insufficiency
Hyperlipidemia, lipid profile 07/11/2024: Total cholesterol 223, LDL 168, HDL 38, triglycerides 88.
History of hypertension, noncompliant with medications
BMI, 34 with possible sleep apnea
Lapse in medical care for several years
Plan:
Hypertensive emergency with uncontrolled blood pressures in the setting of acute stroke
-Previous communication with neurology; goal now normotension
-Restarted on IV Cardene while oral antihypertensive therapy is initiated
-Started labetalol. Pending response can also add CONCHITA inhibitor. Continue amlodipine
-Secondary hypertensive workup initiated. TSH within normal limits. Hemoglobin A1c within normal limits.
Multiple bilateral acute/chronic strokes
-Neurology consult
-Plan for Transesophageal echocardiogram once blood pressures in safer range, hopefully Friday
-Continue to monitor on telemetry
-Plan for Linq implant if no arrhythmias seen on fourth officer
-Plan per Neurology: 21 days of aspirin/Plavix then aspirin alone unless arrhythmia discovered. Outpatient hypercoagulable profile evaluation at 6 weeks after onset of symptoms
-High intensity statin initiated. Goal LDL less than 55 mg/dL
Sinus disease noted on CT and MRI imaging�defer to primary
Suspect sleep apnea with plan for outpatient sleep study
Data Reviewed
-
EKG: Report Reviewed by me
Radiology: Report Reviewed by me
CT Scan: Report Reviewed by me
MRI: Report Reviewed by me
Labs: Labs Reviewed by me
Old Records: Reviewed
[2024-07-11] MEDS: TRANDATE 200 MG PO ×2 (10:45→19:47)
--- NOTE | 2024-07-11 10:55 | PTCARENOTE ---
SBP remains 170-180's, Cardene increased to 5mg/hr. 200mg PO Labetalol given. Labs drawn and sent.
[2024-07-11] MEDS: CARDENE 200 IV (12:03)
--- NOTE | 2024-07-11 12:11 | PTCARENOTE ---
SBP down into 140-150's, Cardene decreased to 2.5mg/hr. Pt remains OOB in chair, no changes in assessment.
--- NOTE | 2024-07-11 13:02 | W.PN.NEURO.1 ---
Today's Communication / Plan
-
Agree with initiation of aspirin and clopidogrel for 21 days, then aspirin alone
Outpatient hypercoagulable profile evaluation at 6 weeks after onset of symptoms
Goal of blood pressure improvement with the goal of normotension 24 hours after onset of symptoms
Start atorvastatin 80 mg daily
Appreciate cardiology evaluation for SALVADOR due to minimal risk factors and relatively young age for onset of stroke, also will likely need Linq device
Neuro Assessment/Plan
Assessment
Acute onset right arm and leg numbness associated by report with dysarthria. Patient had malignant hypertension at the time of presentation.
MRI brain demonstrates acute ischemic strokes in the following locations by radiologist report:
'4 mm lesion in right putamen
4 mm lesion in the right thalamus
11 mm lesion subcortical white matter left frontal lobe
3 mm lesion anterior left putamen
6 mm lesion posteriorly in the internal capsule on the left
16 mm lesion anterior left occipital lobe abutting the splenium of the corpus callosum'
Plan
Agree with initiation of aspirin and clopidogrel for 21 days, then aspirin alone
Outpatient hypercoagulable profile evaluation at 6 weeks after onset of symptoms
Goal of blood pressure improvement with the goal of normotension 24 hours after onset of symptoms
Start atorvastatin 80 mg daily
Appreciate cardiology evaluation for SALVADOR due to minimal risk factors and relatively young age for onset of stroke, also will likely need Linq device
DVT prophylaxis
Will follow pending results
Subjective/Objective
Subjective Data
Date of Service: July 11, 2024
Objective Data
Vital Signs
Temp Pulse Resp BP Pulse Ox
37.2 C 87 22 140/99 97
07/11/24 11:00 07/11/24 13:00 07/11/24 13:00 07/11/24 13:00 07/11/24 13:00
Lab Results
07/11/24 05:15
07/11/24 05:15
Sodium 142 mmol/L (135-145) 07/11/24 05:15
Potassium 3.3 mmol/L (3.5-5.1) L 07/11/24 05:15
BUN 15 mg/dl (9-20) 07/11/24 05:15
Glucose 96 mg/dl (70-99) 07/11/24 05:15
Calcium 9.4 mg/dl (8.4-10.2) 07/11/24 05:15
LDL Cholesterol, Calc 168 mg/dl 07/11/24 05:15
Vitamin B12 549 pg/ml (239-931) 07/10/24 04:29
Vitamin B12 Cancelled 07/10/24 04:29
Patient Allergies
No Known Allergies Allergy (Verified 07/10/24 03:33)
Data Reviewed
-
MRI Head: Report Reviewed and Image Reviewed
Labs: Report Reviewed
Lipid Profile: Report Reviewed
Reviewed with: Physician
Old Records: Summarized
--- NOTE | 2024-07-11 13:05 | PTCARENOTE ---
SBP 120's, Cardene gtts turned off.
--- NOTE | 2024-07-11 15:37 | W.PN.HOSP.TC ---
Today's Communication/Plan
-
Additional PO antihypertensive medications have been added
Wean Cardene drip as tolerated
Continue ASA, Plavix
Continue high-intensity statin
Appreciate health information director, cardiology and neurology
Assessment / Plan
Assessment / Plan
Physical Exam
General: Not in acute distress
HEENT: Moist mucous membranes
Respiratory: Clear to Auscultation Bilaterally
Cardiac: S1/S2 and Regular Rhythm
GI: Soft, Non Tender, Non Distended and Normal Bowel Sounds
Musculoskeletal: No Cyanosis and No Edema
Neuro: AAO x 3. Cranial Nerves 2 through 12 grossly intact bilaterally. Strength 5/5 bilaterally. Sensation grossly intact throughout.
Assessment/Plan
Patient is a 49y left-hand dominant male with PMH significant for hypertension who presented to complaining of right-sided weakness on the evening of 07/10/24.
Hypertensive Emergency
Right Sided Weakness -- RESOLVED
Rule Out CVA
Multiple Strokes (both old and new) on Brain MRI, as per neurologist
- Continue to monitor in ICU
- Initial BP = 221/150.
- Patient stated that his presenting symptoms resolved
- Continue Aspirin and Plavix for 21 days, followed by Aspirin single antiplatelet therapy
- Outpatient hypercoagulable profile evaluation at 6 weeks after onset of symptoms
- Appreciate neurology evaluation and recommendations
- CT and CTA unremarkable in the ED.
- MRI Brain with multiple strokes
- Follow for any new / worsening neurologic symptoms.
- LDL 160, A1C 5.4, iron studies okay
- Continue high-intensity statin
- Amlodipine 5 mg PO BID started on admission, now Chlorthalidone and Labetalol have been added
- Wean Cardene Drip as able
- Secondary hypertension work-up
- Consulted cardiology for SALVADOR evaluation
Snoring
- outpatient pulm/HST recommended
DVT Prophylaxis: SCDs. Lovenox.
Code Status: Full
Hypertensive emergency with SBP above 200 mmHg this morning, and strokes is a high risk encounter.
Anticipated Discharge: > 48 hours
Subjective/Interval History
-
Date of Service: July 11, 2024
Patient was seen and examined. He denied any headache, blurry vision, weakness, numbness, tingling or any other symptoms or complaints.
Objective Data
-
Labs:
Laboratory Results
07/11/24
05:15
WBC 6.1
Hgb 14.0
Hct 42.6
Plt Count 233
Sodium 142
Potassium 3.3 L
Chloride 102
Carbon Dioxide 30
BUN 15
Creatinine 1.4 H
Glucose 96
Calcium 9.4
Vital Signs:
Vital Signs
Temp Pulse Resp BP Pulse Ox
98.0 F 80 20 162/125 99
07/11/24 15:00 07/11/24 15:00 07/11/24 15:00 07/11/24 15:00 07/11/24 15:00
I&O
07/10/24 07/11/24 07/12/24
06:59 06:59 06:59
Intake Total 75.0 / 75.0
Balance 75.0 / 75.0
[2024-07-11] MEDS: APRESOLINE 5 MG IV (15:41)
--- NOTE | 2024-07-11 17:52 | PTCARENOTE ---
Pt's SBP trending up into 170's, 5mg PRN Apresoline given. SBP briefly in 160's, now trending back up into 170's. Dr. Bejarano notified, ordered rec'd for 5mg Lisinopril, awaiting pharmacy verification at this time.
[2024-07-11] MEDS: LIPITOR 80 MG PO (18:07)
[2024-07-11] MEDS: LOVENOX 40 MG SC (18:07)
[2024-07-11] MEDS: ZESTRIL 5 MG PO (18:07)
--- NOTE | 2024-07-11 20:00 | PTCARENOTE ---
Rec'd pt sleeping, easily arousable, NIH- 0, cooperative, denies pain, NRB, + pulses, skin warm/dry, RA, lungs clear, + bowel sounds, abd obese, soft, no n/v, voids in bathroom
--- NOTE | 2024-07-11 23:48 | PTCARENOTE ---
sys reviewed, changes noted
[2024-07-12] VITALS (45 sets, daily range): BP systolic 133–167; BP diastolic 88–113; BMI 33.5
[2024-07-12 03:28] LABS: Mean Corp Hgb Conc. 34.2 g/dL (33.0-37.0); Mean Corpuscular Hgb 26.4 pg (27.0-31.0); Mean Corpuscular Volume 77.2 fL (80.0-94.0); Mean Platelet Volume 10.8 fL (7.4-10.4); Platelet Count 227 10^3/uL (130-400); Red Blood Cell Count 4.92 10^6/uL (4.70-6.10); Red Cell Dist. Width 13.8 % (11.5-14.5); White Blood Cell Count 6.2 10^3/uL (4.8-10.8)
[2024-07-12 03:38] LABS: INR 1.02; PT 13.7 Sec (11.4-14.6)
[2024-07-12 03:39] LABS: APTT 32.8 Sec (23.4-35.0)
[2024-07-12 03:49] LABS: Blood Urea Nitrogen 15 mg/dl (9-20); Calcium 9.2 mg/dl (8.4-10.2); Carbon Dioxide 27 mmol/L (22-30); Chloride 105 mmol/L (98-107); Estimated Creatinine Clearance 81 ml/min; Glucose 106 mg/dl (70-99); Potassium 3.3 mmol/L (3.5-5.1); Sodium 143 mmol/L (135-145); eGFR > 60.00
--- NOTE | 2024-07-12 03:55 | PTCARENOTE ---
sys reviewed, changes noted
[2024-07-12] MEDS: KCL 40 MEQ PO (04:32)
--- NOTE | 2024-07-12 04:32 | PTCARENOTE ---
40 meq kcl po given for k-3.3
[2024-07-12] MEDS: APRESOLINE 10 MG IV ×2 (04:55→17:11)
--- NOTE | 2024-07-12 04:56 | PTCARENOTE ---
apresoline 10mg iv given for elevated bp
--- NOTE | 2024-07-12 05:56 | PTCARENOTE ---
oob to chair
--- NOTE | 2024-07-12 06:34 | PTCARENOTE ---
cardene gtt restarted at 2.5 mg- to keep sbp 140-160
--- NOTE | 2024-07-12 07:26 | W.PN.HOSP.TC ---
Today's Communication/Plan
-
Transfer to IMU as patient has been weaned off Cardene Drip
Closely monitor patient's blood pressure in IMU while on the new oral medications
Follow-up renal ultrasound
Morning labs
Assessment / Plan
Assessment / Plan
Physical Exam
General: Not in acute distress
HEENT: Moist mucous membranes
Respiratory: Clear to Auscultation Bilaterally
Cardiac: S1/S2 and Regular Rhythm
GI: Soft, Non Tender, Non Distended and Normal Bowel Sounds
Musculoskeletal: No Cyanosis and No Edema
Neuro: AAO x 3. Cranial Nerves 2 through 12 grossly intact bilaterally. Strength 5/5 bilaterally. Sensation grossly intact throughout.
Assessment/Plan
Patient is a 49y left-hand dominant male with PMH significant for hypertension who presented to complaining of right-sided weakness on the evening of 07/10/24.
Hypertensive Emergency
Right Sided Weakness -- RESOLVED
Rule Out CVA
Multiple Strokes (both old and new) on Brain MRI, as per neurologist
- Continue to monitor in ICU
- Initial BP = 221/150.
- Patient stated that his presenting symptoms resolved
- Continue Aspirin and Plavix for 21 days, followed by Aspirin single antiplatelet therapy
- Outpatient hypercoagulable profile evaluation at 6 weeks after onset of symptoms
- Appreciate neurology evaluation and recommendations
- CT and CTA unremarkable in the ED.
- MRI Brain with multiple strokes
- Follow for any new / worsening neurologic symptoms.
- LDL 160, A1C 5.4, iron studies okay
- Continue high-intensity statin -- Atorvastatin 80 mg daily
- Amlodipine 5 mg PO BID started on admission, now Chlorthalidone and Labetalol have been added, as well as Lisinopril and Aldactone
- If potassium and creatinine stable by 07/12/24, plan to increase to Aldactone to 25 mg daily and follow labs.
- Wean Cardene Drip as able
- Secondary hypertension work-up
- Consulted cardiology for SALVADOR evaluation: SALVADOR done on 07/12/24 shows no evidence of left atrial appendage thrombus, normal interatrial septum and bubble study was negative. LVEF was 55 to 60%.
- An implantable loop recorder was inserted on 07/12/24 to evaluate further for cryptogenic CVA --> follow up with cardiology as an outpatient to interpret this
- Follow-up renal artery ultrasound
- Consulted nephrology, appreciate their evaluation and recommendations
Hypokalemia
- Given the hypertensive emergency along with low potassium, concern for hyperaldosteronism
- Follow-up labs for hyperaldosteronism
Snoring
- Outpatient GILBERTO evaluation should be performed for suspected GILBERTO
DVT Prophylaxis: SCDs. Lovenox.
Code Status: Full
Severe hypertension needing Cardene Drip earlier today and now on 5 different blood pressure medications, and strokes is a high risk encounter.
Anticipated Discharge: > 48 hours
Subjective/Interval History
-
Date of Service: July 12, 2024
Patient was seen and examined. He denied any weakness, headache, blurry vision, chest pain, SOB or any other symptoms or complaints.
Objective Data
-
Labs:
Laboratory Results
07/12/24
03:16
WBC 6.2
Hgb 13.0
Hct 38.0 L
Plt Count 227
PT 13.7
INR 1.02
APTT 32.8
Sodium 143
Potassium 3.3 L
Chloride 105
Carbon Dioxide 27
BUN 15
Creatinine 1.3
Glucose 106 H
Calcium 9.2
Vital Signs:
Vital Signs
Temp Pulse Resp BP Pulse Ox
98.1 F 96 16 158/107 97
07/12/24 03:53 07/12/24 05:30 07/12/24 05:30 07/12/24 05:00 07/12/24 05:30
I&O
07/11/24 07/12/24 07/13/24
06:59 06:59 06:59
Intake Total 705.0 / 705.0
Balance 705.0 / 705.0
[2024-07-12] MEDS: Hygroton 25 MG PO (07:30)
[2024-07-12] MEDS: LOW STRENGTH ASPIRIN 81 MG PO (07:30)
[2024-07-12] MEDS: ZESTRIL 5 MG PO (07:30)
[2024-07-12] MEDS: PLAVIX 75 MG PO (07:30)
[2024-07-12] MEDS: TRANDATE 200 MG PO ×2 (07:30→20:16)
[2024-07-12] MEDS: NORVASC 5 MG PO ×2 (07:30→20:16)
--- NOTE | 2024-07-12 07:30 | PTCARENOTE ---
Received pt @ change of shift. Already sitting OOB to chair; ambulates around room w stand by assist/steady gait. NIH-0, completed w off going RN. AAOx3, flat affect; c/o mild h/a- see OCT. SR on monitor. SpO2 99% on RA. +BS, abd
soft/round/obese. Cont b/b. #18 R AC w Cardene gtt infusing per orders- see flow sheet. Instructed on how to report care concerns and call looney in reach.
[2024-07-12] MEDS: TYLENOL 650 MG PO (07:31)
--- NOTE | 2024-07-12 07:38 | W.PN.CARDCBS ---
Addendum entered and electronically signed by Tiffanie Bee MD 07/12/24 10:22:
I saw and examined the patient.
The Manager General's note was reviewed and I agree with the note.
Comment: Exam currently stable. He tells me he has history of hypertension has been untreated. He presented with stroke and hypertensive emergency.
-Wean Cardene as tolerates.
-Concern for hyperaldosteronism as potential mechanism given hypokalemia. Labs pending.
-Renal artery duplex ultrasound was also ordered.
-Low-dose spironolactone added to his regimen. If potassium and creatinine stable tomorrow would increase to 25 mg daily and follow labs.
-Given CVA multiple locations SALVADOR and Linq scheduled for today. Currently on dual antiplatelet therapy.
-Lipid-lowering new
-Consider assessment for sleep apnea as outpatient.
-Discussed with patient.
Original Note:
Today's Communication / Plan
-
Await renin shelby levels
Start spironolactone 12.5 mg now
As BP improves after morning meds will stop Cardene in anticipation of SALVADOR and Linq this morning
Impression / Plan
-
Bottom Presser: None, initially seen by Dr. Bejarano
Impression:
Admitted with RUE weakness 07/10/24
Multiple acute/chronic bilateral CVAs on MRI 07/10/24
Hypertensive emergency
History of hypertension, noncompliant with medications
Hyperlipidemia, lipid profile 07/11/2024: Total cholesterol 223, LDL 168, HDL 38, triglycerides 88.
BMI, 34 with possible sleep apnea
Lapse in medical care for several years
Hypokalemia
SALVADOR 07/12/24: Study pending
Plan:
-Increased HTN 07/12/24 AM and Cardene restarted at 2.5 mg. Talked with nursing 07/12/24 AM, early doses of amlodipine 5 mg BID, chlorthalidone, labetalol 200 mg BID and lisinopril 5 mg daily already given. Plan is to follow up on BP in the next hour
and if improved to less than 150/90 then will stop Cardene again in preparation of SALVADOR 07/12/24.
-Hypokalemia noted and supplemented by ICU FILTER MACHINE OPERATOR early AM. Concern for hyperaldosteronism with hypokalemia and HTN. Added on labs to check renin-aldosterone ratio, pending. Labs might be a bit off due to initiation of chlorthalidone and lisinopril this
admission. Also ordered renal artery u/s
-Will start spironolactone 12.5 mg daily on 07/12/24
-Patient was not taking BP meds prior to admission due to noncompliance and has not seen a physician in years.
-SALVADOR and possible Linq scheduled for 07/12/24. Patient agreeable to SALVADOR and Linq 07/12/24.
-New to aspirin and Plavix this admission and explained that if SALVADOR shows cardiac source for embolus then we would transition to OAC.
-Outpatient hypercoagulable profile evaluation at 6 weeks after onset of symptoms
-LDL 168 this admission. New to atorvastatin 80 mg daily this admission.
-Outpatient GILBERTO eval should be performed for suspect GILBERTO
HPI: I had the pleasure to meet Kim Rebollar in ICU room 3360 after he was admitted to [facility] 07/10/2024 with acute right sided weakness diagnosed with multiple acute/chronic strokes. Patient is a 49-year-old [place] gentleman who
reports prior history of hypertension not currently on antihypertensive therapy and has not seen a physician in many years. He works at [employer] and had previously been checking his blood pressures however had stopped doing this several
months ago. The night prior to his admission he had noted right sided weakness. He denied preceding headaches or change in vision. No speech difficulties. No syncope near syncope. He denies chest pain or pressure. He denies prior history of
stroke or thromboembolic disease. He has had no recent COVID or infections. He denies recent travel. He is a lifelong non-smoker and does not drink or do illicit drugs. He has had no prior cardiac evaluation. Family history was reviewed: His
mother and father are still living and reportedly healthy as are his multiple siblings including 4 brothers and 5 sisters. He denies family history of hypertension, hyperlipidemia, diabetes, thromboembolic disease, prior stroke or premature
coronary artery disease No history of valvular heart disease. In the emergency department his blood pressure was found to be 221 over 150 mg/dL and placed on IV Cardizem drip. His initial head CT was negative with subsequent brain MRI demonstrating
acute and chronic bilateral nonhemorrhagic strokes. Fortunately his right-sided weakness has resolved. Overnight he was placed back on IV Cardene drip with blood pressure goals now normotensive. Neurology and intensive care has also been
consulted.
Progress Note - Bottom Presser
Subjective
Date of Service: July 12, 2024
Denies palpitations
Objective
Labs:
07/12/24 03:16
07/12/24 03:16
Labs
Hgb 13.0 g/dL (13.0-18.0) 07/12/24 03:16
Hct 38.0 % (39.0-52.0) L 07/12/24 03:16
Plt Count 227 10^3/uL (130-400) 07/12/24 03:16
PT 13.7 Sec (11.4-14.6) 07/12/24 03:16
INR 1.02 07/12/24 03:16
APTT 32.8 Sec (23.4-35.0) 07/12/24 03:16
Sodium 143 mmol/L (135-145) 07/12/24 03:16
Potassium 3.3 mmol/L (3.5-5.1) L 07/12/24 03:16
BUN 15 mg/dl (9-20) 07/12/24 03:16
Creatinine 1.3 mg/dL (0.7-1.3) 07/12/24 03:16
Glucose 106 mg/dl (70-99) H 07/12/24 03:16
Vital Signs and I&O:
Vital Signs
Temp Pulse Resp BP Pulse Ox
98.1 F 98 16 143/91 97
07/12/24 03:53 07/12/24 07:30 07/12/24 05:30 07/12/24 07:30 07/12/24 05:30
Vital Signs
Temp Pulse Resp BP Pulse Ox
98.1 F 98 16 143/91 97
07/12/24 03:53 07/12/24 07:30 07/12/24 05:30 07/12/24 07:30 07/12/24 05:30
Intake & Output
07/10/24 07/11/24 07/12/24 07/13/24
06:59 06:59 06:59 06:59
Intake Total 705.0 / 705.0
Balance 705.0 / 705.0
Physical Exam
Physical Exam
GEN: AAOx3
HEENT: EOMI, MMM
LUNGS: No audible wheeze
CV: SR on tele
ABD: ND
EXT: No edema B/L
NEURO: Gross non-focal
SKIN: No rash
--- NOTE | 2024-07-12 08:31 | W.PN.INTV ---
Today's Communication / Plan
Recommendations
MRI reviewed with patient showing multiple bilateral acute/subacute infarctions, neuro following and recs appreciated
HTN management ongoing, continue IV PRN hydralazine
Continue chlorthalidone, labetalol, lisinopril, aldactone + Norvasc with goal BP<140/90mmHg
PT/OT
Pt endorses snoring --> outpatient sleep office follow-up to discuss sleep disordered breathing
Patient has been weaned off of Cardene gtt and is stable for downgrade out of ICU to IMU. No additional recommendations at this time - Senior Games Technician/Pulmonary service will now sign off. Please re-consult if there are any additional
questions/concerns, or if patient's respiratory status deteriorates.
Assessment
-
Patient is a 49-year-old male with previous history of hypertension not currently on medication presenting to ER with complaints of right-sided weakness. Onset of symptoms began the night prior to admission around 8 PM. Denies any associated
vision changes, nausea or vomiting. He does have slight headache. In ER he was noted to be 221/150 and placed on Cardene drip. His blood pressure has been this high in the past per patient. He was supposed to be on blood pressure medication but
has not been taking it for the past [address] negative. He is admitted to ICU for hypertensive emergency.
Impression:
Hypertensive emergency on Cardene
R sided weakness
Headache
MRI positive with multiple acute/chronic CVAs with suspected cardioembolic CVA vs thromboembolic source
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
HTN, noncompliant
Obesity, BMI 34
+snoring, likely with OSAS
Plan
No current signs of metabolic encephalopathy or MS changes/following commands
R sided weakness, SHORT--initial HCT negative --> right sided weakness now resolved
Neuro on board - recs appreciated
MRI showing multiple acute/chronic CVAs, on ASA/Plavix + high intensity statin
Continue neurochecks q4hr with NIHSS per shift
SALVADOR done today shows no evidence of left atrial appendage thrombus, normal interatrial septum and bubble study was negative. LVEF was 55 to 60%.
- An implantable loop recorder was inserted today to evaluate further for cryptogenic CVA --> follow up with cardiology as an outpatient to interpret this
Hemodynamically stable, not requiring pressors.
Cardiac history reviewed -- poorly controlled HTN, noncompliant
Now off cardene gtt
Cardiology on board - recs appreciated
Monitor on telemetry
Oxygen needs: stable on RA; keep SpO2 >94%
Prior history of lung disease: none, lifelong nonsmoker
CXR in past reviewed indicating NAD
+Snoring, outpt HST recommended--will place FU in chart
Speech therapy eval --> passed for regular solids/thin liquids with general aspiration precautions
Keep HOB > 30 degrees
Replete K>4, Mg>2
No signs/symptoms suspicious for infectious etiology at this time
Observe off antibiotics for now
Follow fever trend, WBC count
CBC stable, no signs of bleeding or coagulopathy.
DVT ppx: LMWH
Can transfuse if indicated for Hb <7, plt < 100k
No prior h/o diabetes or thyroid disease
Goal BG 140-180
HbA1c 5.4 (collected 07/10/2024)
Patient has been weaned off of Cardene and is stable for downgrade out of ICU to IMU. No additional recommendations at this time. Senior Games Technician/Pulmonary service will now sign off. Thank you for allowing us to be involved in the care of this
patient. Please reconsult if there are any additional questions/concerns, or if patient's respiratory status deteriorates.
Diagnostic Data
Chest X-Ray: 05/07/23- No evidence of active cardiopulmonary disease. There is no radiographic evidence to suggest active tuberculosis
CT Scan: HEAD-pending final read
Head 11/22/20- No acute intracranial abnormality noted. Minimal periventricular small vessel ischemic disease.
Brain MRI 07/10/24- 1).There are multiple areas of restricted diffusion in multiple vascular distributions involving both cerebral hemispheres suggesting acute/subacute embolic infarct. Areas of acute/subacute nonhemorrhagic infarct include:
-4 mm lesion in right putamen
-4 mm lesion in the right thalamus
-11 mm lesion subcortical white matter left frontal lobe
-3 mm lesion anterior left putamen
-6 mm lesion posteriorly in the internal capsule on the left
-16 mm lesion anterior left occipital lobe abutting the splenium of the corpus callosum
Echo:
SALVADOR 07/12/2024:
Normal biventricular size and systolic function without regional wall motion
abnormality. Estimated LVEF 55-60%.
Trace aortic regurgitation.
No thrombus detected in the left atrial appendage.
Normal interatrial septum.
No evidence of shunt by color flow Doppler, or by bubble study with and without
simulated Valsalva (negative bubble study).
No prior study available for comparison.
Reports and relevant images were personally reviewed.
-----
Total time spent today was 56 minutes for this encounter. Time includes reviewing laboratory test/imaging results, reviewing pertinent medical records, obtaining and reviewing medical history, performing an appropriate exam, ordering medications,
tests and procedures. Time also includes documentation of this encounter, coordinating patient care and communicating with other healthcare professionals. Total time does not include separately billed tests performed on this date of service.
Subjective Dataa
Subjective Data
Date of Service:
Date of Service: July 12, 2024
Chief Complaint: Senior Games Technician Follow Up
Subjective:
Patient was seen and evaluated this morning. NIH stroke scale is 0. Been off Cardene since this morning at 9 AM after PO meds were administered. Cardene was on overnight. VS this show: 142/102, HR 82 and saturating 97% on RA. He denies any
weakness in his arms or legs, or numbness or tingling. No difficulty speaking, no headache, no chest pain or shortness of breath.
Review of Systems
General: Other (Negative unless mentioned above)
Objective Data
Data Reviewed
Vital Signs / I&O / Oxygen:
Vital Signs
Temp Pulse Resp BP Pulse Ox
98.5 F 98 16 143/91 99
07/12/24 07:39 07/12/24 07:30 07/12/24 05:30 07/12/24 07:30 07/12/24 07:47
Intake and Output
07/11/24 07/12/24 07/13/24
06:59 06:59 06:59
Intake Total 705.0 / 705.0
Balance 705.0 / 705.0
SaO2 99
Physical Exam
General: Respiratory Distress (negative), Comfortable, Chills (negative), Sweats (negative) and Other (NAD)
HEENT: Normocephalic, Anicteric and Moist Mucous Membranes
Cardiovascular: S1-S2, Regular Rhythm and Peripheral Edema (negative)
Respiratory: Clear, Wheeze (negative), Crackles (negative), Rhonchi (negative), Non-Labored Respirations and Accessory Resp Muscle Use (negative)
GI: Soft, Non Distended, Non Tender and Normal Bowel Sounds
Neurology: AO x 3, No Motor Deficits (Manufacture Specialist strength bilaterally is 5/5; lower extremity flexion 5/5 bilaterally), Tremors (negative) and Other (Normal sensation to light touch in all 4 extremities; cranial nerves are normal with normal tongue
protrusion and lateral movement, normal smile with no nasolabial flattening, normal H test, normal shoulder shrug, able to keep eyes closed against resistance, pupils +3 mm b/l and brisk)
Skin: Warm, Dry, Cyanosis (negative) and Jaundice (negative)
Labs/Micro/Reports
Lab Data
07/12/24 03:16
07/12/24 03:16
Laboratory Results
07/12/24
03:16
PT 13.7
INR 1.02
APTT 32.8
--- NOTE | 2024-07-12 09:57 | PTCARENOTE ---
Pt.'s SBP w/in goal x2H, Cardene gtt tapered to off @ 0905. NPO status maintained pending SALVADOR today. Remains OOB to chair w call looney in reach.
--- NOTE | 2024-07-12 10:50 | PTCARENOTE ---
Addendum entered by Stephanie Arellano RN 07/12/24 17:18:
Received back from boot and shoe laborer approx 1330; updated by boot and shoe laborer RN. Middle chest dressing s/p device insert c/d/i. Device accessories left @ bedside for patient to take on discharge. Stand by assisted OOB to chair, activity tolerated. Call looney in
reach.
Original Note:
Report given to boot and shoe laborer RN and pt. transported via bed to boot and shoe laborer @ this time for SALVADOR; awaiting report.
--- NOTE | 2024-07-12 11:58 | CM ---
CM following re: discharge planning.
Discussed in rounds, reviewed pt's chart, met with pt.
PT and OT evaluations noted - pt has no skilled PT/OT needs.
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
D/C plan: home no needs. family to transport.
CM will follow with discharge plan updates as needed.
--- NOTE | 2024-07-12 12:45 | ITS.CL.IMPLP ---
Property Field Adjuster - Implant Loop
Implant Loop
Procedure Report:
Date of Procedure: July 14, 2024
Primary manager outreach: Dr. Spring Bejarano
Procedure: Insertable Loop Recorder Implantation
Indication:
Cryptogenic CVA
Procedure:
The patient was brought to the procedure area in a fasting state. The anterior chest was prepped and draped in standard sterile fashion. The fourth intercostal space along the left sternal border was identified and this area was anesthetized with 10
mL of 1% lidocaine. After gathering the skin in this area, a small punch incision was made at approx intercostal space 4-5 at left costo-sternal junction using the provided scalpel/punch tool. The loop recorder was loaded into the tunneling device.
A tunnel was created in the subcutaneous tissue at a 45� angle along the coronal plane away from the sternum and towards the left flank. The tunneling device was inverted and the plunger was depressed, inserting the loop recorder into the
subcutaneous space. The tunneling device was removed. Manual pressure provide hemostasis. Adequate signal was confirmed. The skin was closed with steri-strips. The estimated blood loss was < 1 cc. A clean dressing was placed over the wound.
There were no complications.
Implant:
[employer] Reveal LINQ
Conclusion: Uncomplicated implantation of loop recorder.
Recommendation: Routine ILR care.
Copy: Dr. Spring Bejarano
[2024-07-12] MEDS: ALDACTONE 12.5 MG PO (13:25)
[2024-07-12] MEDS: LIPITOR 80 MG PO (17:05)
[2024-07-12] MEDS: LOVENOX 40 MG SC (17:05)
--- NOTE | 2024-07-12 17:16 | PTCARENOTE ---
Pt. remains OOB to chair s/p arrival back from lab assistant; tolerating chair position/activity. Tolerating meals. SBP elevated into 160's, PRN admin- see OCT. Call aure remains w in reach.
--- NOTE | 2024-07-12 20:00 | PTCARENOTE ---
rec`d pt at 1900 OOB to chair. pt AAOx3. flat affect but pleasant. makes needs known. NIH done with previous nurse, NIH 0. q4h, moves all 4 extremities. center chest incision covered with 4x4, minimal drainage. SR on monitor. HR 80s, SBP 130s. no
edema. RA, clear lung sounds, POX 96-99%. +BS. 1x assist to bathroom. rt AC 18 flushed and patent. call looney in reach, safe environment maintained.
[2024-07-12 22:35] LABS: Blood Urea Nitrogen 17 mg/dl (9-20); Calcium 9.4 mg/dl (8.4-10.2); Carbon Dioxide 26 mmol/L (22-30); Chloride 103 mmol/L (98-107); Estimated Creatinine Clearance 70 ml/min; Glucose 98 mg/dl (70-99); Potassium 3.4 mmol/L (3.5-5.1); Sodium 139 mmol/L (135-145); eGFR 57.43
[2024-07-12] MEDS: KCL 20 MEQ PO (23:48)
[2024-07-13] VITALS (14 sets, daily range): BP systolic 118–163; BP diastolic 87–114; BMI 33.2
--- NOTE | 2024-07-13 00:09 | PTCARENOTE ---
pt reassessed. no changes in pt. call looney in reach, safe environment maintained.
[2024-07-13 04:34] LABS: Blood Urea Nitrogen 16 mg/dl (9-20); Calcium 9.5 mg/dl (8.4-10.2); Carbon Dioxide 25 mmol/L (22-30); Chloride 103 mmol/L (98-107); Estimated Creatinine Clearance 70 ml/min; Glucose 109 mg/dl (70-99); Potassium 3.6 mmol/L (3.5-5.1); Sodium 143 mmol/L (135-145); eGFR 57.43
--- NOTE | 2024-07-13 05:46 | PTCARENOTE ---
pt reassessed. no changes in pt. pt OOB to chair. call looney in reach, safe environment maintained.
--- NOTE | 2024-07-13 08:00 | PTCARENOTE ---
Rec`d pt at 0700 seated OOB in chair. pt AAOx3. flat affect but pleasant. makes needs known. NIHSS completed, score of 1 for mild right facial droop with smile. Pt amb by self in room. center chest incision covered with 2x2, no drainage noted. SR
on tele monitor. See flowsheet for vitals.Pt remains on RA, sat 96%, clear lung sounds. call looney in reach, safe environment maintained.
[2024-07-13] MEDS: PLAVIX 75 MG PO (08:54)
[2024-07-13] MEDS: ZESTRIL 5 MG PO (08:54)
[2024-07-13] MEDS: LOW STRENGTH ASPIRIN 81 MG PO (08:54)
[2024-07-13] MEDS: Hygroton 25 MG PO (08:55)
[2024-07-13] MEDS: NORVASC 5 MG PO ×2 (08:55→20:22)
[2024-07-13] MEDS: TRANDATE 200 MG PO ×2 (08:55→20:22)
[2024-07-13] MEDS: ALDACTONE 25 MG PO (08:59)
[2024-07-13] MEDS: ALDACTONE PO (09:01)
--- NOTE | 2024-07-13 09:01 | W.PN.CARDCBS ---
Today's Communication / Plan
-
Increase spironolactone
Discharge planning
Impression / Plan
-
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 Bejarano
Impression:
Admitted with RUE weakness 07/10/24
Multiple acute/chronic bilateral CVAs on MRI 07/10/24
Hypertensive emergency
History of hypertension, noncompliant with medications
Hyperlipidemia, lipid profile 07/11/2024: Total cholesterol 223, LDL 168, HDL 38, triglycerides 88.
BMI, 34 with possible sleep apnea
Lapse in medical care for several years
Hypokalemia
SALVADOR 07/12/24: NL LVEF 55-60%, no high grade valve disease, no cardioembolic source of CVA
Plan:
#CVA:
-Admitted with R sided weakness found to have b/l embolic CVA on MRI
-No cardioembolic source of CVA on SALVADOR 07/12
-No Afib/flutter seen overnight on tele
-Linq implanted 07/12
-Agree with ASA/Plavix x21 days and high intensity statin
-Will need better fpc BP control
-Outpatient hypercoagulable profile evaluation would be reasonable
#HTN:
-BP trend overall improving, off cardene gtt
-Increase spironolactone to 25mg daily - concern for hyperaldosterone and patient presented with hypokalemia
-Cont amlodipine 5 mg BID, chlorthalidone, labetalol 200 mg BID and lisinopril 5 mg daily
-Patient was not taking BP meds prior to admission
We will arrange outpatient cardiology follow
HPI: I had the pleasure to meet Kim Rebollar in ICU room 3360 after he was admitted to [facility] 07/10/2024 with acute right sided weakness diagnosed with multiple acute/chronic strokes. Patient is a 49-year-old [place] gentleman who
reports prior history of hypertension not currently on antihypertensive therapy and has not seen a physician in many years. He works at [employer] and had previously been checking his blood pressures however had stopped doing this several
months ago. The night prior to his admission he had noted right sided weakness. He denied preceding headaches or change in vision. No speech difficulties. No syncope near syncope. He denies chest pain or pressure. He denies prior history of
stroke or thromboembolic disease. He has had no recent COVID or infections. He denies recent travel. He is a lifelong non-smoker and does not drink or do illicit drugs. He has had no prior cardiac evaluation. Family history was reviewed: His
mother and father are still living and reportedly healthy as are his multiple siblings including 4 brothers and 5 sisters. He denies family history of hypertension, hyperlipidemia, diabetes, thromboembolic disease, prior stroke or premature
coronary artery disease No history of valvular heart disease. In the emergency department his blood pressure was found to be 221 over 150 mg/dL and placed on IV Cardizem drip. His initial head CT was negative with subsequent brain MRI demonstrating
acute and chronic bilateral nonhemorrhagic strokes. Fortunately his right-sided weakness has resolved. Overnight he was placed back on IV Cardene drip with blood pressure goals now normotensive. Neurology and intensive care has also been
consulted.
Progress Note - M60A2 Armor Crewman
Subjective
Date of Service: July 13, 2024
NAOE. Resting comfortably OOB to chair. No cardiac complaints.
Objective
Labs:
07/12/24 03:16
07/13/24 04:00
Labs
Hgb 13.0 g/dL (13.0-18.0) 07/12/24 03:16
Hct 38.0 % (39.0-52.0) L 07/12/24 03:16
Plt Count 227 10^3/uL (130-400) 07/12/24 03:16
PT 13.7 Sec (11.4-14.6) 07/12/24 03:16
INR 1.02 07/12/24 03:16
APTT 32.8 Sec (23.4-35.0) 07/12/24 03:16
Sodium 143 mmol/L (135-145) 07/13/24 04:00
Potassium 3.6 mmol/L (3.5-5.1) 07/13/24 04:00
BUN 16 mg/dl (9-20) 07/13/24 04:00
Creatinine 1.5 mg/dL (0.7-1.3) H 07/13/24 04:00
Glucose 109 mg/dl (70-99) H 07/13/24 04:00
Vital Signs and I&O:
Vital Signs
Temp Pulse Resp BP Pulse Ox
97.9 F 86 12 163/114 98
07/13/24 08:03 07/13/24 08:54 07/13/24 07:00 07/13/24 08:54 07/13/24 07:00
Vital Signs
Temp Pulse Resp BP Pulse Ox
97.9 F 86 12 163/114 98
07/13/24 08:03 07/13/24 08:54 07/13/24 07:00 07/13/24 08:54 07/13/24 07:00
Intake & Output
07/11/24 07/12/24 07/13/24 07/14/24
06:59 06:59 06:59 06:59
Intake Total 705.0 / 705.0 622.5 / 622.5
Balance 705.0 / 705.0 622.5 / 622.5
Physical Exam
Physical Exam
Gen: NAD, AAOx3
HEENT: NC/AT, sclera anicteric
Neck: No JVD
CV: RRR, NL s1/s2, no M/R/G
Lungs: CTAB
Abd: S/ND
Ext: No LE edema
Skin: Warm, dry
Neuro: Non-focal
--- NOTE | 2024-07-13 10:26 | W.CON.NEPH ---
Consultation
-
Date/Time Consultation Requested: 07/12/24 190
Date/Time Consultation Performed: 07/13/24 1026
Requesting Provider: Sanford Davis
Performing Provider: Celia Davis
Reason for Consultation: elevated cr and HTN emergency
Medical History
-
Chief Complaint: right side weakness
History of Present Illness:
49-year-old male with previous history of hypertension stopped meds 2yrs ago presented on 07/10 with right side weakness. HIs BPs were high at 220/150 on arrival to ER. He was noted HTN emergency and started on cardene gtt. MRI shows embolic CVA
both hemispheres. Cardiology also saw him and echo/SALVADOR shows no PFO. He had linq placed on 07/12. secondary w/u sent by cards and started on multiple po meds. Currently on Amlodipine, Thiazide, BB, ACEI and Aldactone. HIs cr on admit was 1.3 and
yesterday upto 1.5 and unchanged today. He is off cardene gtt since 07/12 9am. He offers no dizziness, no cp or sob. No n/v or vision changes or SHORT. Right side weakness improving. No prior PCP visits or labs.
Past Medical History
HTN untreated
Social History
Tobacco: Non-Smoker
Alcohol: None
Drug: None
Living: With Family
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
Family History
no CKD
Family History: Not Pertinent
Allergies / Home Medications
Allergy/AdvReac Type Severity Reaction Status Date / Time
No Known Allergies Allergy Verified 07/10/24 03:33
�Medication �Instructions �Recorded �Confirmed �Type
No Meds [No Current Medications] 07/10/24 07/10/24 History
Review of Systems
-
All complete 12 point ROS have been inquired and found negative other than stated in HPI
Physical Exam
Vital Signs
Vital Signs
Temp Pulse Resp BP Pulse Ox
98.6 F 84 14 135/96 95
07/13/24 11:55 07/13/24 10:00 07/13/24 10:00 07/13/24 10:00 07/13/24 10:00
Lab Results
WBC 6.2 10^3/uL (4.8-10.8) 07/12/24 03:16
RBC 4.92 10^6/uL (4.70-6.10) 07/12/24 03:16
Hgb 13.0 g/dL (13.0-18.0) 07/12/24 03:16
Hct 38.0 % (39.0-52.0) L 07/12/24 03:16
Plt Count 227 10^3/uL (130-400) 07/12/24 03:16
Sodium 143 mmol/L (135-145) 07/13/24 04:00
Potassium 3.6 mmol/L (3.5-5.1) 07/13/24 04:00
Chloride 103 mmol/L (98-107) 07/13/24 04:00
Carbon Dioxide 25 mmol/L (22-30) 07/13/24 04:00
BUN 16 mg/dl (9-20) 07/13/24 04:00
Creatinine 1.5 mg/dL (0.7-1.3) H 07/13/24 04:00
eGFR 57.43 07/13/24 04:00
Glucose 109 mg/dl (70-99) H 07/13/24 04:00
Calcium 9.5 mg/dl (8.4-10.2) 07/13/24 04:00
Albumin 4.7 g/dl (3.5-5.0) 07/10/24 04:29
MRI head:
IMPRESSION:
1).There are multiple areas of restricted diffusion in multiple vascular distributions involving both cerebral hemispheres suggesting acute/subacute embolic infarct. Areas of acute/subacute nonhemorrhagic infarct include:
-4 mm lesion in right putamen
-4 mm lesion in the right thalamus
-11 mm lesion subcortical white matter left frontal lobe
-3 mm lesion anterior left putamen
-6 mm lesion posteriorly in the internal capsule on the left
-16 mm lesion anterior left occipital lobe abutting the splenium of the corpus callosum
2). Moderate nonspecific white matter changes as described above.
SALVADOR:
CONCLUSIONS
Normal biventricular size and systolic function without regional wall motion
abnormality. Estimated LVEF 55-60%.
Trace aortic regurgitation.
No thrombus detected in the left atrial appendage.
Normal interatrial septum.
No evidence of shunt by color flow Doppler, or by bubble study with and without
simulated Valsalva (negative bubble study).
No prior study available for comparison.
Physical Exam
General: Awake, Alert, Oriented, AOx3, No Distress and Nontoxic
HEENT: EOMI, Anicteric, Conjunctivae Clear, Dentition Intact and Facial Symmetry
Respiratory: Clear, Normal Excursion and Nonlabored Respirations
Cardiac: S1/S2 and Regular Rate/Rhythm
Breast: Deferred by me
Abdomen: Soft, Nontender and Nondistended
Musculoskeletal: No Cyanosis and No Edema
Skin: No Rash
Neuro: Other (alert and oriented, speech clear )
Psych: Appropriate
Data Reviewed
-
Radiology: Report Reviewed by me, Discussed with Nurse and Discussed with Patient
Labs: Labs Reviewed by me, Discussed with Nurse and Discussed with Patient
Assessment/Plan
-
IMP:
Hypertensive Emergency
Embolic CVA bilat
Right Sided Weakness -- RESOLVED
Hypokalemia
suspected GILBERTO
Plan:
A/w CVA, MRI bilat embolic CVA noted
HTN emergency-agree with secondary w/u
ARR, metanephrins sent, will send catecholamines too
pending renal duplex today
BP sub optimal , meds adjusted per cards
on Amlodipine, labetalol, chlorthalidone, low dose Lisinopril and Aldactone-dose increased today
hypokalemia-better now
avoid drastic BP changes
Suspect he has CKD, no previous labs to compare
admit cr at 1.3 and now 1.5 post contrast 07/10 and BP control
check UA for baseline
reviewed with pt that cr might increase while trying to reach normotension
suspect he has stage 2 vs 3 CKD
d/w pt in detail and nursing
--- NOTE | 2024-07-13 11:09 | CM ---
CM following re: discharge planning.
Discussed in rounds, reviewed pt's chart, met with pt.
Pt stated he is taking seriously Doctors recommendations regarding compliance with medications and pt stated he already looking for a PCP in [facility]. Encouragement with support offered and provided.
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
D/C plan: home no needs. Family to transport.
CM will follow with discharge plan updates as needed.
--- NOTE | 2024-07-13 12:04 | PN.CDI ---
CDI
- -
CDI:
Physician Documentation Request
Admit Date: 07/10/24 06:19
Dear Doctor Belen,
Patient presented to the emergency department for evaluation of dysarthria and right-sided weakness.
Patient found to have hypertensive emergency and multiple strokes (new and old) on brain MRI.
Cardiology note states 'Patient was not taking BP meds prior to admission due to noncompliance and has not seen a physician in years.'
Please clarify if a relationship exist between these conditions:
Yes, stroke is related to/associated with/due to hypertensive emergency .
No, stroke is not related to/associated with/due to hypertensive emergency
Unable to determine
Use of terms such as suspected, likely, concern for, or probable (associated with a specific diagnosis that is being evaluated, monitored, or treated as if it exists) are acceptable and can be coded in the inpatient setting, when documented at the
time of discharge.
Thank you,
Juliane Ruiz RN, BSN
CDI Specialist
tiger text
Please use your independent medical judgment in providing your response.
--- NOTE | 2024-07-13 13:11 | PTCARENOTE ---
Addendum entered by Shahram Westfall RN 07/13/24 13:45:
Renal artery US result noted.
Original Note:
Pt reassessed, no changes. Per orders, urinalysis pending-pt updated and verbalized understanding. Pt not ready for downgrade or discharge today per attending Dr. Glover. BP responded well to medications, see flowsheet. Family in room to visit.
Safe environment maintained.
[2024-07-13] MEDS: LIPITOR 80 MG PO (17:11)
[2024-07-13] MEDS: LOVENOX 40 MG SC (17:12)
[2024-07-13] MEDS: TYLENOL 650 MG PO (17:16)
[2024-07-13 17:30] LABS: Urine Albumin Trace (Neg - Trace); Urine Bilirubin Negative (Negative); Urine Character Clear (Clear); Urine Color Yellow; Urine Glucose Negative (Negative); Urine Ketone Negative (Negative); Urine Leukocyte Negative (Negative); Urine Nitrite Negative (Negative); Urine Occult Blood Negative (Negative); Urine Specific Gravity 1.015 (<1.030); Urine Urobilinogen 2+ (Neg - 1+)
--- NOTE | 2024-07-13 18:50 | W.PN.HOSP.TC ---
Today's Communication/Plan
-
Continue blood pressure management, await results of studies
Assessment / Plan
Assessment / Plan
Physical Exam
General: Not in acute distress
HEENT: Moist mucous membranes
Respiratory: Clear to Auscultation Bilaterally
Cardiac: S1/S2 and Regular Rhythm
GI: Soft, Non Tender, Non Distended and Normal Bowel Sounds
Musculoskeletal: No Cyanosis and No Edema
Neuro: AAO x 3. Cranial Nerves 2 through 12 grossly intact bilaterally. Strength 5/5 bilaterally. Sensation grossly intact throughout.
Assessment/Plan
Patient is a 49y left-hand dominant male with PMH significant for hypertension who presented to complaining of right-sided weakness on the evening of 07/10/24.
Hypertensive Emergency
Right Sided Weakness -- RESOLVED
Rule Out CVA
Multiple Strokes (both old and new) on Brain MRI, as per neurologist -- concern for strokes being associated with hypertensive emergency
- Continue to monitor in ICU
- Initial BP = 221/150.
- Patient stated that his presenting symptoms resolved
- Continue Aspirin and Plavix for 21 days, followed by Aspirin single antiplatelet therapy
- Outpatient hypercoagulable profile evaluation at 6 weeks after onset of symptoms
- Appreciate neurology evaluation and recommendations
- CT and CTA unremarkable in the ED.
- MRI Brain with multiple strokes
- Follow for any new / worsening neurologic symptoms.
- LDL 160, A1C 5.4, iron studies okay
- Continue high-intensity statin -- Atorvastatin 80 mg daily
- Amlodipine 5 mg PO BID started on admission, now Chlorthalidone and Labetalol have been added, as well as Lisinopril and Aldactone (Aldactone increased to 25mg daily - concern for hyperaldosteronism and patient presented with hypokalemia)
- Wean Cardene Drip as able
- Secondary hypertension work-up
- Consulted cardiology for SALVADOR evaluation: SALVADOR done on 07/12/24 shows no evidence of left atrial appendage thrombus, normal interatrial septum and bubble study was negative. LVEF was 55 to 60%.
- An implantable loop recorder was inserted on 07/12/24 to evaluate further for cryptogenic CVA --> follow up with cardiology as an outpatient to interpret this
- Follow-up renal artery ultrasound
- Consulted nephrology, appreciate their evaluation and recommendations
Hypokalemia
- Given the hypertensive emergency along with low potassium, concern for hyperaldosteronism
- Follow-up labs for hyperaldosteronism
- Now on Aldactone
Snoring
- Outpatient GILBERTO evaluation should be performed for suspected GILBERTO
DVT Prophylaxis: SCDs. Lovenox.
Code Status: Full Code
Anticipated Discharge: 24 - 48 hours
Subjective/Interval History
-
Date of Service: July 13, 2024
Patient was seen and examined. He denied any headache, chest pain, SOB, numbness, tingling, weakness or any other symptoms or complaints.
Objective Data
-
Vital Signs:
Vital Signs
Temp Pulse Resp BP Pulse Ox
98.5 F 89 18 145/97 98
07/13/24 15:38 07/13/24 18:02 07/13/24 16:00 07/13/24 18:02 07/13/24 15:00
I&O
07/12/24 07/13/24 07/14/24
06:59 06:59 06:59
Intake Total 705.0 / 705.0 622.5 / 622.5 960 / 960
Balance 705.0 / 705.0 622.5 / 622.5 960 / 960
--- NOTE | 2024-07-13 20:05 | PTCARENOTE ---
Received pt from previous RN. Pt is AAOx3, flat/withdrawn, NIH score of 1 for right sided facial droop (see worklist). NSR on the monitor. Pt on RA O2 sat 98%, lungs clear. BRP x1. SCDs in place. Pt is laying in bed with call looney in reach. Safe
environment maintained.
--- NOTE | 2024-07-13 22:20 | PTCARENOTE ---
Pt transferred to via wheelchair, with all pt belongings.
--- NOTE | 2024-07-13 23:23 | PTCARENOTE ---
22:13 pt rec'vd from ICU via w/c, pt had 2 bags with his belongings, vs b/p 153/99, denies CP,SHORT or any discomfort , tele placed and oriented to unit.
[2024-07-14] MEDS: APRESOLINE 10 MG IV (02:56)
[2024-07-14 03:00] VITALS: BP 158/106
[2024-07-14 03:12] VITALS: BP 162/109
[2024-07-14 05:26] VITALS: BP 152/97
[2024-07-14 07:15] VITALS: BP 150/101
[2024-07-14] MEDS: TRANDATE 200 MG PO (08:29)
[2024-07-14] MEDS: LOW STRENGTH ASPIRIN 81 MG PO (08:29)
[2024-07-14] MEDS: Hygroton 25 MG PO (08:29)
[2024-07-14] MEDS: ZESTRIL 5 MG PO (08:29)
[2024-07-14] MEDS: PLAVIX 75 MG PO (08:29)
[2024-07-14] MEDS: ALDACTONE 25 MG PO (08:30)
[2024-07-14] MEDS: NORVASC 5 MG PO (08:30)
[2024-07-14 10:52] LABS: Aldosterone, Serum 15.7 ng/dL; Aldosterone/Renin Activ Ratio 5.4 ratio (<=25.0); Renin Activity Results 2.9 ng/mL/hr
--- NOTE | 2024-07-14 11:03 | CM ---
Reviewed the chart notes. CM continues to be available to patient/family and is monitoring medical plan for needs at discharge.
Plan: Discharge to home when medically stable. No needs identified at this time.
--- NOTE | 2024-07-14 11:12 | W.PN.CARDCBS ---
Today's Communication / Plan
-
Continue current BP meds
Stable cardiac status, we will sign off, please recall as needed
Impression / Plan
-
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 Bejarano
Impression:
Admitted with RUE weakness 07/10/24
Multiple acute/chronic bilateral CVAs on MRI 07/10/24
Hypertensive emergency
History of hypertension, noncompliant with medications
Hyperlipidemia, lipid profile 07/11/2024: Total cholesterol 223, LDL 168, HDL 38, triglycerides 88.
BMI, 34 with possible sleep apnea
Lapse in medical care for several years
Hypokalemia
SALVADOR 07/12/24: NL LVEF 55-60%, no high grade valve disease, no cardioembolic source of CVA
Plan:
#CVA:
-Admitted with R sided weakness found to have b/l embolic CVA on MRI
-No cardioembolic source of CVA on SALVADOR 07/12
-No Afib/flutter seen overnight on tele
-Linq implanted 07/12
-Agree with ASA/Plavix x21 days and high intensity statin
-Will need better [facility] BP control
-Outpatient hypercoagulable profile evaluation would be reasonable
#HTN:
-BP trend overall improving - concern for hyperaldosterone and patient presented with hypokalemia
-Continue spironolactone to 25mg daily, amlodipine 5 mg BID, chlorthalidone 25mg, labetalol 200 mg BID and lisinopril 5 mg daily
-Hold off on further uptitrate of BP meds at this time
Stable cardiac status, we will sign off
Outpatient cardiology follow to be arranged
HPI: I had the pleasure to meet Kim Rebollar in ICU room 3360 after he was admitted to [facility] 07/10/2024 with acute right sided weakness diagnosed with multiple acute/chronic strokes. Patient is a 49-year-old [place] gentleman who
reports prior history of hypertension not currently on antihypertensive therapy and has not seen a physician in many years. He works at [employer] and had previously been checking his blood pressures however had stopped doing this several
months ago. The night prior to his admission he had noted right sided weakness. He denied preceding headaches or change in vision. No speech difficulties. No syncope near syncope. He denies chest pain or pressure. He denies prior history of
stroke or thromboembolic disease. He has had no recent COVID or infections. He denies recent travel. He is a lifelong non-smoker and does not drink or do illicit drugs. He has had no prior cardiac evaluation. Family history was reviewed: His
mother and father are still living and reportedly healthy as are his multiple siblings including 4 brothers and 5 sisters. He denies family history of hypertension, hyperlipidemia, diabetes, thromboembolic disease, prior stroke or premature
coronary artery disease No history of valvular heart disease. In the emergency department his blood pressure was found to be 221 over 150 mg/dL and placed on IV Cardizem drip. His initial head CT was negative with subsequent brain MRI demonstrating
acute and chronic bilateral nonhemorrhagic strokes. Fortunately his right-sided weakness has resolved. Overnight he was placed back on IV Cardene drip with blood pressure goals now normotensive. Neurology and intensive care has also been
consulted.
Progress Note - Inner Layer Scrubber Tender
Subjective
Date of Service: July 14, 2024
NAOE. Resting comfortably OOB to chair. No cardiac complaints. Some discomfort at Linq implant site.
Objective
Labs:
07/12/24 03:16
07/13/24 04:00
Labs
Hgb 13.0 g/dL (13.0-18.0) 07/12/24 03:16
Hct 38.0 % (39.0-52.0) L 07/12/24 03:16
Plt Count 227 10^3/uL (130-400) 07/12/24 03:16
PT 13.7 Sec (11.4-14.6) 07/12/24 03:16
INR 1.02 07/12/24 03:16
APTT 32.8 Sec (23.4-35.0) 07/12/24 03:16
Sodium 143 mmol/L (135-145) 07/13/24 04:00
Potassium 3.6 mmol/L (3.5-5.1) 07/13/24 04:00
BUN 16 mg/dl (9-20) 07/13/24 04:00
Creatinine 1.5 mg/dL (0.7-1.3) H 07/13/24 04:00
Glucose 109 mg/dl (70-99) H 07/13/24 04:00
Vital Signs and I&O:
Vital Signs
Temp Pulse Resp BP Pulse Ox
98.4 F 88 16 150/101 99
07/14/24 07:15 07/14/24 08:30 07/14/24 07:15 07/14/24 08:30 07/14/24 07:15
Vital Signs
Temp Pulse Resp BP Pulse Ox
98.4 F 88 16 150/101 99
07/14/24 07:15 07/14/24 08:30 07/14/24 07:15 07/14/24 08:30 07/14/24 07:15
Intake & Output
07/12/24 07/13/24 07/14/24 07/15/24
06:59 06:59 06:59 06:59
Intake Total 705.0 / 705.0 622.5 / 622.5 1010 / 1010
Balance 705.0 / 705.0 622.5 / 622.5 1010 / 1010
Physical Exam
Physical Exam
Gen: NAD, AAOx3
HEENT: NC/AT, sclera anicteric
Neck: No JVD
CV: RRR, NL s1/s2, no M/R/G
Lungs: CTAB
Abd: S/ND
Ext: No LE edema
Skin: Warm, dry, ILR site CDI
Neuro: Non-focal
[2024-07-14 11:30] VITALS: BP 154/93
--- NOTE | 2024-07-14 11:51 | W.PN.NEPH.PH ---
Today's Communication / Plan
-
Increase Aldactone to 50 mg daily
Follow BMP
Assessment/Plan
-
IMP:
Hypertensive Emergency
Embolic CVA bilat
Right Sided Weakness -- RESOLVED
Hypokalemia
suspected GILBERTO
Plan:
A/w CVA, MRI bilateral embolic CVA noted
HTN emergency-secondary hypertensive workup initiated
ARR, metanephrines sent, will send catecholamines too
Renal artery duplex negative for renal artery stenosis
BP sub optimal , meds adjusted per cards
on Amlodipine, labetalol, chlorthalidone, low dose Lisinopril and Aldactone-dose increased on 07/13/2024, will increase to 50mg daily, even though aldosterone to renin ratio level was only 5.4
hypokalemia-slowly improving
avoid drastic BP changes
Suspect he has CKD, no previous labs to compare
admit cr at 1.3 and now 1.5 post contrast 07/10 and BP control
check UA for baseline
reviewed with pt that cr might increase while trying to reach normotension
suspect he has stage 2 vs 3 CKD
d/w pt in detail and nursing
-
-
Date of Service: July 14, 2024
CC / HPI / ROS
-
Chief Complaint:
Hypertension
KELSIE
History of Present Illness:
Systolic blood pressures now in the 150s on multidrug regimen which includes dual RAAS antagonist
Case slowly rise
Review of Systems:
Nonoliguric
No chest pain or shortness of breath
Labs
-
Labs:
WBC 6.2 10^3/uL (4.8-10.8) 07/12/24 03:16
RBC 4.92 10^6/uL (4.70-6.10) 07/12/24 03:16
Hgb 13.0 g/dL (13.0-18.0) 07/12/24 03:16
Hct 38.0 % (39.0-52.0) L 07/12/24 03:16
Plt Count 227 10^3/uL (130-400) 07/12/24 03:16
Sodium 143 mmol/L (135-145) 07/13/24 04:00
Potassium 3.6 mmol/L (3.5-5.1) 07/13/24 04:00
Chloride 103 mmol/L (98-107) 07/13/24 04:00
Carbon Dioxide 25 mmol/L (22-30) 07/13/24 04:00
BUN 16 mg/dl (9-20) 07/13/24 04:00
Creatinine 1.5 mg/dL (0.7-1.3) H 07/13/24 04:00
eGFR 57.43 07/13/24 04:00
Glucose 109 mg/dl (70-99) H 07/13/24 04:00
Calcium 9.5 mg/dl (8.4-10.2) 07/13/24 04:00
Albumin 4.7 g/dl (3.5-5.0) 07/10/24 04:29
Physical Exam
-
Vital Signs:
Vital Signs
Temp Pulse Resp BP Pulse Ox
98.4 F 84 16 154/93 99
07/14/24 11:30 07/14/24 11:30 07/14/24 11:30 07/14/24 11:30 07/14/24 11:30
Respiratory:: Bilateral: CTA
Lung Excursion:: Normal
Abdomen:: Soft
Bowel Sounds:: Normal
Extremity Edema:: None: Bilateral:
Coughlin Catheter: No
--- NOTE | 2024-07-14 12:11 | W.PN.HOSP.TC ---
Today's Communication/Plan
-
Discharge today
Assessment / Plan
Assessment / Plan
Physical Exam
General: Not in acute distress
HEENT: Moist mucous membranes
Respiratory: Clear to Auscultation Bilaterally
Cardiac: S1/S2 and Regular Rhythm
GI: Soft, Non Tender, Non Distended and Normal Bowel Sounds
Musculoskeletal: No Cyanosis and No Edema
Neuro: AAO x 3. Cranial Nerves 2 through 12 grossly intact bilaterally. Strength 5/5 bilaterally. Sensation grossly intact throughout.
Assessment/Plan
Patient is a 49y left-hand dominant male with PMH significant for hypertension who presented to complaining of right-sided weakness on the evening of 07/10/24.
Hypertensive Emergency
Right Sided Weakness -- RESOLVED
Rule Out CVA
Multiple Strokes (both old and new) on Brain MRI, as per neurologist -- concern for strokes being associated with hypertensive emergency
- Initial BP = 221/150, was in ICU and received Cardene Drip
- Patient stated that his presenting symptoms resolved
- Continue Aspirin and Plavix for 21 days, followed by Aspirin single antiplatelet therapy -- 17 days (starting 07/15/24) of DAPT left
- Outpatient hypercoagulable profile evaluation at 6 weeks after onset of symptoms
- Appreciate neurology evaluation and recommendations
- CT and CTA unremarkable in the ED.
- MRI Brain with multiple strokes
- Follow for any new / worsening neurologic symptoms.
- LDL 160, A1C 5.4, iron studies okay
- Continue high-intensity statin -- Atorvastatin 80 mg daily
- On discharge, blood pressure medications: Amlodipine 5 mg PO BID, Chlorthalidone 25 mg, Labetalol 200 mg BID, Lisinopril 5 mg daily and Aldactone 50 mg daily
- Wean Cardene Drip as able
- Secondary hypertension work-up results so far noted
- Consulted cardiology for SALVADOR evaluation: SALVADOR done on 07/12/24 shows no evidence of left atrial appendage thrombus, normal interatrial septum and bubble study was negative. LVEF was 55 to 60%.
- An implantable loop recorder was inserted on 07/12/24 to evaluate further for cryptogenic CVA --> follow up with cardiology as an outpatient to interpret the results of the Linq monitor
- Renal artery ultrasound
- Low sodium diet
- Consulted nephrology, appreciate their evaluation and recommendations
- Follow-up with cardiology, neurology and nephrology outpatient
Hypokalemia
- Given the hypertensive emergency along with low potassium, concern for hyperaldosteronism
- Follow-up labs for hyperaldosteronism
- Now on Aldactone
Snoring
- Outpatient GILBERTO evaluation should be performed for suspected GILBERTO
- Follow-up with pulmonary outpatient
DVT Prophylaxis: SCDs. Lovenox.
Code Status: Full Code
More than 30 minutes spent in discharge including
Final examination of the patient
Summarizing hospital stay
Instructions for continuing care to all relevant caregivers
Preparation of discharge records, prescriptions, and referral forms
Total time spent (in minutes): 41
Anticipated Discharge: Today
Subjective/Interval History
-
Date of Service: July 14, 2024
Patient was seen and examined. He denied any chest pain, shortness of breath, headache, numbness, tingling or any other complaints.
Objective Data
-
Vital Signs:
Vital Signs
Temp Pulse Resp BP Pulse Ox
98.4 F 84 16 154/93 99
07/14/24 11:30 07/14/24 11:30 07/14/24 11:30 07/14/24 11:30 07/14/24 11:30
I&O
07/13/24 07/14/24 07/15/24
06:59 06:59 06:59
Intake Total 622.5 / 622.5 1010 / 1010
Balance 622.5 / 622.5 1010 / 1010
[2024-07-14 13:37] LABS: Hematocrit 40.6 % (39.0-52.0); Hemoglobin 13.4 g/dL (13.0-18.0); Mean Corpuscular Hgb 26.7 pg (27.0-31.0); Mean Platelet Volume 10.5 fL (7.4-10.4); Platelet Count 275 10^3/uL (130-400); Red Blood Cell Count 5.01 10^6/uL (4.70-6.10); Red Cell Dist. Width 14.2 % (11.5-14.5); White Blood Cell Count 6.3 10^3/uL (4.8-10.8)
[2024-07-14 13:50] LABS: Blood Urea Nitrogen 20 mg/dl (9-20); Calcium 9.9 mg/dl (8.4-10.2); Carbon Dioxide 30 mmol/L (22-30); Chloride 100 mmol/L (98-107); Estimated Creatinine Clearance 69 ml/min; Glucose 86 mg/dl (70-99); Magnesium 2.3 mg/dl (1.6-2.3); Potassium 3.9 mmol/L (3.5-5.1); Sodium 142 mmol/L (135-145); eGFR 57.43
[2024-07-14 15:15] VITALS: BP 159/102
--- NOTE | 2024-07-14 16:10 | W.DCSUMMARY ---
Discharge Summary
Discharge Data
Date of Admission: 07/10/24
Date of Discharge: 07/14/24
Total time spent discharging patient (in min): 41
-
Pending Results: Yes
Additional Pending Results:
Follow-up with nephrology office results of labwork ordered in the hospital
Hospital Course
49 y/o male with past medical history significant for hypertension not currently on medication who presented complaining of right-sided weakness. After he presented to the emergency room, patient said that his symptoms full resolved. He was
previously on blood pressure medication but had not taken it for at least 2 years. Patient was started on Cardene Drip and admitted to the intensive care unit. Patient's MRI Brain showed multiple bilateral strokes, both old and new (please see the
MRI report for all the details). Neurology, Nephrology and Cardiology were consulted. Patient was started on a high-intensity statin, and his oral blood pressure medication regimen was intensified. Patient was continued on dual antiplatelet therapy
with Aspirin and Plavix. He was eventually able to weaned off Cardene Drip. On July 12, 2024, patient had a transesophageal echocardiogram, which showed, as per spanish speaking babysitter's report:
'CONCLUSIONS
Normal biventricular size and systolic function without regional wall motion
abnormality. Estimated LVEF 55-60%.
Trace aortic regurgitation.
No thrombus detected in the left atrial appendage.
Normal interatrial septum.
No evidence of shunt by color flow Doppler, or by bubble study with and without
simulated Valsalva (negative bubble study).'
On July 14, 2024, patient had implantation of insertable loop recorder. Patient's renal artery duplex study was negative for renal artery stenosis. Patient was doing well without any chest pain, shortness of breath or any weakness, headache,
blurry vision, numbness or tingling at the time of discharge, his blood pressure was much better controlled, and he was stable for discharge with close outpatient follow-up with outpatient physicians.
Discharge Plan
-
Patient Disposition: Home (Routine Discharge)
Discharge Diagnosis/Procedures: Hypertensive Emergency
Right Sided Weakness -- RESOLVED
Multiple Strokes (both old and new) on Brain MRI
Hypokalemia
Snoring
MRI Brain Results (as per radiologist's report)
'IMPRESSION:
1).There are multiple areas of restricted diffusion in multiple vascular distributions involving both cerebral hemispheres suggesting acute/subacute embolic infarct. Areas of acute/subacute nonhemorrhagic infarct include:
-4 mm lesion in right putamen
-4 mm lesion in the right thalamus
-11 mm lesion subcortical white matter left frontal lobe
-3 mm lesion anterior left putamen
-6 mm lesion posteriorly in the internal capsule on the left
-16 mm lesion anterior left occipital lobe abutting the splenium of the corpus callosum
2). Moderate nonspecific white matter changes as described....
.....Additionally, the patient has large volume soft tissue in the left maxillary sinus consistent with left maxillary sinusitis.'
CTA Head and Neck (as per radiologist's report)
'IMPRESSION: No evidence of M1 nor M2 occlusion.
Straightening of normal cervical spinal lordosis. This can be seen with muscular spasm.
Severe nonacute left maxillary sinusitis.
Minimal nonacute right maxillary sinusitis.
Mild C5/C6 degenerative disc disease.'
Condition: Good
Diet: Low Fat, Low Cholesterol and 2 Gram Sodium
Activity: As tolerated
Blood Work: BMP and Magnesium with your PCP's office within 5 to 6 days
Activity Restrictions/Additional Instructions:
You need to see a primary care physician within the next 1 week and have your BMP and Magnesium lab-work checked.
Call Dr. Davies's (electric melt operator) office to follow-up on the results of labwork in the hospital that are still pending.
You will need outpatient hypercoagulable profile evaluation at 6 weeks after onset of symptoms, with the neurology outpatient office.
Read the handouts and on blood pressure, high blood pressure and checking your blood pressure at home.
Instructions: Stroke, High blood pressure in adults, High blood pressure emergencies, Checking your blood pressure at home, Low-sodium diet, Stroke - Discharge instructions
Referrals:
Emily Conroy CRNP [Specified Professional Personl] - in two to three weeks (Hospital Strokes Follow-Up)
Sarah Sahni CRNP [Specified Professional Personl] - 07/29/24 1:40 pm (You have a cardiology follow-up appointment at the [place] office. Please call with questions)
Lis Soliman, DO [Active] - in four to six weeks (SLEEP EVAL)
UNKNOWN - PT DOES,NOT KNOW [Family Provider] -
Celia Davies MD [Active] - in less than 1 week (Hospital Follow-Up of Severe Hypertension (nephrology saw patient in hospital))
Additional Discharge Medication Instructions: All your medications in this list are new medications.
Prescriptions:
New
spironolactone 50 mg Tablet
50 mg PO DAILY Qty: 30 1RF
chlorthalidone 25 mg Tablet
25 mg PO DAILY Qty: 30 1RF
atorvastatin 80 mg Tablet
80 mg PO QPM Qty: 30 1RF
aspirin 81 mg Tablet,Chewable
81 mg PO DAILY Qty: 30 1RF
clopidogrel 75 mg Tablet
75 mg PO DAILY 17 Days Qty: 17 0RF
Rx Instructions:
Start on July 15, 2024
amlodipine 5 mg Tablet
5 mg PO BID Qty: 60 1RF
labetalol 200 mg Tablet
200 mg PO BID Qty: 60 1RF
lisinopril 5 mg Tablet
5 mg PO DAILY Qty: 30 1RF
Discharge Orders:
Discharge Patient (As Directed); Ordered 07/14/24
Ordered By: Sanford Glover
Discharge Date and Time
Discharge Date/Time: 07/14/24 17:45
Print Language: ALBANIAN
[2024-07-14] MEDS: AFLURIA (36 mos+) 2024-2025 FORMULA 0.5 ML IM (17:04)
== END 2024-07-14 17:45 | disposition home or self-care (01) | DRG 260 ==
LOC: 2 SOUTH 06:19
PROVIDERS: Internal Medicine; Internal Medicine Cardiovascular Disease; Nurse Practitioner Family; Nurse Practitioner Gerontology; ADMITTING PHYSICIAN Hospitalist; ATTENDING PHYSICIAN Hospitalist; CONSULT PHYSICIAN Internal Medicine; CONSULT PHYSICIAN Internal Medicine Cardiovascular Disease; CONSULT PHYSICIAN Psychiatry & Neurology Neurology; EMERGENCY PHYSICIAN Emergency Medicine
PROC: B24BZZ4 Ultrasonography of Heart with Aorta, Transesophageal (ICD-10-PCS; 2024-07-12)
PROC: 0JH602Z Insertion of Monitoring Device into Chest Subcutaneous Tissue and Fascia, Open Approach (ICD-10-PCS; 2024-07-12)
PROC: 3E02340 Introduction of Influenza Vaccine into Muscle, Percutaneous Approach (ICD-10-PCS; 2024-07-14)
DX: I16.1 Hypertensive emergency (principal); I63.40 Cerebral infarction due to embolism of unspecified cerebral artery; G81.91 Hemiplegia, unspecified affecting right dominant side; R47.1 Dysarthria and anarthria; E78.5 Hyperlipidemia, unspecified; E87.6 Hypokalemia; E66.9 Obesity, unspecified; G47.33 Obstructive sleep apnea (adult) (pediatric); N28.9 Disorder of kidney and ureter, unspecified; I10 Essential (primary) hypertension; E26.9 Hyperaldosteronism, unspecified; R06.83 Snoring; Z91.199 Patient's noncompliance with other medical treatment and regimen due to unspecified reason; Z68.34 Body mass index [BMI] 34.0-34.9, adult; Z86.73 Personal history of transient ischemic attack (TIA), and cerebral infarction without residual deficits; Z91.148 Patient's other noncompliance with medication regimen for other reason; Z23 Encounter for immunization
CPT/HCPCS: 33285; 70450; 70496; 70498; 70551; 80048; 80053; 80061; 81003; 82088; 82384; 82607; 82728; 82746; 82962; 83036; 83540; 83550; 83735; 83835; 84244; 84443; 85025; 85027; 85610; 85652; 85730; 90686; 92523; 92610; 93005; 93312; 93320; 93325; 93971; 93975; 96365; 96366; 96375; 97163; 97165; 99291; C1764; G0008; Q9967